=== PATIENT | male | born 1960 | race Caucasian/White ===

== ENCOUNTER → 2017-10-28 | Outpatient (CLI) | payer BC ==
[2014-04-18 17:48] VITALS: BP 102/66
--- NOTE | 2017-10-28 15:46 | VAS ---
HISTORY: Right lower extremity pain Study: Right lower extremity venous vascular examination: Multiplanar multi sequence magnetic reson ance ring of the deep venous system of the right lower extremity was performed using color, grayscale and pulsed Doppler imaging. Compression and augmentation techniques utilized. Comparison: None Findings: The common femoral vein, superficial femoral vein and popliteal vein are widely patent. No intralumi nal filling defects are identified. These vessels show normal phasic flow. Augmentation and luzmaria adis techniques are normal. IMPRESSION: 1. No evidence of deep venous thrombosis involving the right lower extremity. Reported By:
== END ==
LOC: RAD 14:18
PROVIDERS: ATTEND Internal Medicine
DX: M79.604 Pain in right leg (principal)
CPT/HCPCS: 93971

== ENCOUNTER 2018-01-19 23:33 | Emergency (ER) | payer BC ==
[2018-01-19 23:42] VITALS: BP 124/68; BMI 30.3
[2018-01-19] MEDS ORDERED: SALINE 3% 15 ML NEB TX ONE (23:52)
[2018-01-19] MEDS ORDERED: SALINE 3% 15 ML NEB TX NEB ONE (23:54)
--- NOTE | 2018-01-20 00:28 | DR.GENAD ---
HPI - PCP Primary Care Physician: toni - Complaint/Symptoms Chief Complaint:: coughing short of breath for three works but worse over the last week. - Nurses notes reviewed Nurses Notes Review: Yes - Source History Provided: Patient - Mode of Arrival Mode of Arrival: Ambulatory - Timing Onset of Chief Complaint: 01/12/18 PMH - PMH Past Medical History: No Past Medical History: GERD, Hypertension Past Surgical History: Yes Surgical History: Abdominal Surgery, Cholecystectomy Past Surgical History Comment: bowel resection as a child - Family History History of Family Medical Conditions: Yes Family Medical History: Cancer - Social History Does patient currently use any type of tobacco product: No Have you used tobacco products in the last 12 months: No Type of Tobacco Use: None Does any household member use tobacco: No Alcohol Use: None Do you use any recreational Drugs:: No Lives With: Family Lives Where: Home - infectious screening In the last 2 months have you had wt loss of >10#?: NO Have you had fever, night sweats or hemotysis?: No Have you traveled outside the country in the last 6 months?: No Isolation: Standard PE - Vital Signs Vitals: Temperature 98.9 F Pulse Rate 106 Respiratory Rate 28 Blood Pressure [Left Arm] 141/97 Blood Pressure [Right Arm] 102/66 Blood Pressure 124/68 O2 Sat by Pulse Oximetry 98 ROR - Labs Reviewed Result Diagrams: 01/20/18 02:14 01/20/18 02:14 Laboratory: 01/20/18 00:07 Sputum - Expectorated Sputum - Final WBC 10.7 X10^3/uL (3.6-10.0) H 01/20/18 02:14 RBC 4.81 X10^6/uL (4.7-6.0) 01/20/18 02:14 Hgb 14.1 g/dL (13.5-18.0) 01/20/18 02:14 Hct 41.2 % (42.0-54.0) L 01/20/18 02:14 MCV 85.6 fL (80.0-100.0) 01/20/18 02:14 MCH 29.4 pg (27.0-34.0) 01/20/18 02:14 MCHC 34.3 g/dL (33.0-35.0) 01/20/18 02:14 RDW 13.2 % (11.6-16.5) 01/20/18 02:14 Plt Count 355 X10^3/uL (150.0-450.0) 01/20/18 02:14 MPV 8.2 fL (7.4-11.0) 01/20/18 02:14 Neut % (Auto) 83.2 % (42.0-75.0) H 01/20/18 02:14 Lymph % (Auto) 11.9 % (21.0-51.0) L 01/20/18 02:14 [place] % (Auto) 4.3 % (0.0-13.0) 01/20/18 02:14 Eos % (Auto) 0.1 % (0.9-2.9) L 01/20/18 02:14 Baso % (Auto) 0.5 % (0.2-1.0) 01/20/18 02:14 Neut # (Auto) 9.0 x10^3/uL (2.2-4.8) H 01/20/18 02:14 Lymph # (Auto) 1.3 X10^3/uL (1.3-2.9) 01/20/18 02:14 [place] # (Auto) 0.5 x10^3/uL (0.3-0.8) 01/20/18 02:14 Eos # (Auto) 0.0 x10^3/uL (0.0-0.2) 01/20/18 02:14 Baso # (Auto) 0.1 X10^3/uL (0.0-0.1) 01/20/18 02:14 Absolute Nucleated RBC 0.0 /100WBC 01/20/18 02:14 Sodium 137 mmol/L (136-145) 01/20/18 02:14 Corrected Sodium 138 mmol/L (136-145) 01/20/18 02:14 Potassium 4.7 mmol/L (3.5-5.1) 01/20/18 02:14 Chloride 100 mmol/L (98-107) 01/20/18 02:14 Carbon Dioxide 24.8 mmol/L (21-32) 01/20/18 02:14 BUN 27 mg/dL (7-18) H 01/20/18 02:14 Creatinine 1.55 mg/dL (0.70-1.30) H 01/20/18 02:14 Est GFR (MDRD) Af Amer 59 (>60) 01/20/18 02:14 Est GFR (MDRD) Non-Af 49 (>60) L 01/20/18 02:14 Glucose 130 mg/dL (65-99) H 01/20/18 02:14 Calcium 8.9 mg/dL (8.5-10.1) 01/20/18 02:14 Corrected Calcium TNP 01/20/18 02:14 Total Bilirubin 0.40 mg/dL (0.2-1.0) 01/20/18 02:14 AST 27 Units/L (15-37) 01/20/18 02:14 ALT 26 Units/L (12-78) 01/20/18 02:14 Alkaline Phosphatase 101 Units/L (46-116) 01/20/18 02:14 Total Protein 8.9 g/dL (6.4-8.2) H 01/20/18 02:14 Albumin 3.9 g/dL (3.4-5.0) 01/20/18 02:14 Globulin 5.0 g/dL (2.5-4.5) H 01/20/18 02:14 Albumin/Globulin Ratio 0.8 Ratio (1.1-2.1) L 01/20/18 02:14 - Discharge Plan Condition: Stable Prescriptions: Cefdinir [Omnicef Cap 300 mg] 300 mg PO BID #20 cap Methylprednisolone Dosepak 4Mg [MEDROL DOSEPAK (4 mg tab x 21)] 1 ronald PO ONCE # 1 ronald - Follow ups/Referrals Follow ups/Referrals: Ramana Baird [Primary Care Provider] - 2 days - Instructions Instructions: Acute Bronchitis, Adult, [id number], Chronic Obstructive Pulmonary Disease Exacerbation, [id number] Additional Instructions: RETURN TO ED IF WORSE. YOU ALSO HAVE RESOLVING PNEUMONIA.
[2018-01-20] MEDS ORDERED: NS 1000 ML 1,000 ML ONE (00:45)
[2018-01-20] MEDS ORDERED: SOLU-Medrol 125 MG VIAL IVP ONE (00:56)
[2018-01-20] MEDS ORDERED: SOLU-Medrol 125 MG VIAL ONE (00:57)
[2018-01-20] MEDS ORDERED: NS 1000 ML 1,000 ML IV SCH (01:00)
[2018-01-20] MEDS ORDERED: ROCEPHIN 1 GM IV PREMIX 1 GM/50 ML IV.SOLN. IV ONE (01:52)
[2018-01-20 02:21] LABS: BASOPHILS # (AUTO) 0.1 X10^3/uL (0.0-0.1); BASOPHILS % (AUTO) 0.5 % (0.2-1.0); EOSINOPHILS % (AUTO) 0.1 % (0.9-2.9); HEMATOCRIT 41.2 % (42.0-54.0); HEMOGLOBIN 14.1 g/dL (13.5-18.0); LYMPHOCYTES # (AUTO) 1.3 X10^3/uL (1.3-2.9); LYMPHOCYTES % (AUTO) 11.9 % (21.0-51.0); MEAN CORPUSCULAR HEMOGLOBIN 29.4 pg (27.0-34.0); MEAN CORPUSCULAR HGB CONC 34.3 g/dL (33.0-35.0); MEAN CORPUSCULAR VOLUME 85.6 fL (80.0-100.0); MEAN PLATELET VOLUME 8.2 fL (7.4-11.0); MONOCYTES # (AUTO) 0.5 x10^3/uL (0.3-0.8); MONOCYTES % (AUTO) 4.3 % (0.0-13.0); NEUTROPHILS % (AUTO) 83.2 % (42.0-75.0); PLATELET COUNT 355 X10^3/uL (150.0-450.0); RED BLOOD COUNT 4.81 X10^6/uL (4.7-6.0); RED CELL DISTRIBUTION WIDTH 13.2 % (11.6-16.5); WHITE BLOOD COUNT 10.7 X10^3/uL (3.6-10.0)
[2018-01-20] MEDS ORDERED: ROCEPHIN VIAL 1 GM ONE (02:21)
[2018-01-20] MEDS ORDERED: NS 100 ML IV 100 ML IV ONE (02:22)
[2018-01-20 02:31] LABS: ALANINE AMINOTRANSFERASE 26 Units/L (12-78); ALBUMIN 3.9 g/dL (3.4-5.0); ALKALINE PHOSPHATASE 101 Units/L (46-116); ASPARTATE AMINO TRANSFERASE 27 Units/L (15-37); BLOOD UREA NITROGEN 27 mg/dL (7-18); CALCIUM 8.9 mg/dL (8.5-10.1); CARBON DIOXIDE 24.8 mmol/L (21-32); CHLORIDE 100 mmol/L (98-107); COR NA(FOR HYPERGLY) 138 mmol/L (136-145); CREATININE 1.55 mg/dL (0.70-1.30); SODIUM 137 mmol/L (136-145); TOTAL PROTEIN 8.9 g/dL (6.4-8.2); eGFR BLACK RACES 59 (>60); eGFR NON BLACK RACES 49 (>60)
--- NOTE | 2018-01-20 02:43 | RAD ---
Chest, two views Indication: Cough Comparison: 09/26/2013 Findings: Heart size is normal. Lungs are mildly hyperinflated with coarsened interstitial markings a nd mild biapical pleural scarring, suggestive for COPD. There is also peribronchial thickening. No fo naz consolidation, significant effusion or pneumothorax is identified. There is no acute osseous abno rmality. Impression: COPD with peribronchial thickening, either representing acute, chronic or acute on chronic bronchitis . Reported By:
== END 2018-01-20 03:29 | disposition home or self-care (01) ==
LOC: ER 23:33
DX: J20.9 Acute bronchitis, unspecified (principal); J44.1 Chronic obstructive pulmonary disease with (acute) exacerbation
CPT/HCPCS: 36415; 71046; 80053; 85025; 87070; 87205; 96365; 96367; 96374; 96375; 99283; A4222; J0696; J2930

== ENCOUNTER 2018-01-26 11:56 | Observation (INO) | payer BC ==
[2018-01-26 14:34] LABS: BASOPHILS % (AUTO) 0.3 % (0.2-1.0); EOSINOPHILS # (AUTO) 0.7 x10^3/uL (0.0-0.2); EOSINOPHILS % (AUTO) 4.2 % (0.9-2.9); HEMATOCRIT 43.7 % (42.0-54.0); HEMOGLOBIN 14.8 g/dL (13.5-18.0); LYMPHOCYTES # (AUTO) 4.2 X10^3/uL (1.3-2.9); LYMPHOCYTES % (AUTO) 26.4 % (21.0-51.0); MEAN CORPUSCULAR HEMOGLOBIN 29.4 pg (27.0-34.0); MEAN CORPUSCULAR HGB CONC 33.9 g/dL (33.0-35.0); MEAN CORPUSCULAR VOLUME 86.5 fL (80.0-100.0); MEAN PLATELET VOLUME 7.9 fL (7.4-11.0); MONOCYTES # (AUTO) 1.4 x10^3/uL (0.3-0.8); MONOCYTES % (AUTO) 8.6 % (0.0-13.0); NEUTROPHILS # (AUTO) 9.7 x10^3/uL (2.2-4.8); NEUTROPHILS % (AUTO) 60.5 % (42.0-75.0); PLATELET COUNT 398 X10^3/uL (150.0-450.0); RED BLOOD COUNT 5.05 X10^6/uL (4.7-6.0); RED CELL DISTRIBUTION WIDTH 12.8 % (11.6-16.5)
[2018-01-26] MEDS: NS 1000 ML 1,000 ML IV SCH (14:43)
[2018-01-26 14:51] LABS: ALANINE AMINOTRANSFERASE 30 Units/L (12-78); ALBUMIN 3.3 g/dL (3.4-5.0); ALKALINE PHOSPHATASE 98 Units/L (46-116); ASPARTATE AMINO TRANSFERASE 18 Units/L (15-37); BLOOD UREA NITROGEN 24 mg/dL (7-18); CALCIUM 8.4 mg/dL (8.5-10.1); CARBON DIOXIDE 30.2 mmol/L (21-32); CHLORIDE 98 mmol/L (98-107); CKMB % 2.4 % (<4); CREATINE KINASE 89 Units/L (39-308); CREATINE KINASE MB 2.1 ng/mL (0-4.0); CREATININE 1.44 mg/dL (0.70-1.30); SODIUM 134 mmol/L (136-145); TOTAL PROTEIN 7.9 g/dL (6.4-8.2); TROPONIN I < 0.02 ng/mL (0-1.5); eGFR BLACK RACES > 60 (>60); eGFR NON BLACK RACES 53 (>60)
[2018-01-26] MEDS ORDERED: ULTRAM PO PRN (15:28)
[2018-01-26] MEDS ORDERED: AMBIEN PO PRN (15:28)
[2018-01-26] MEDS ORDERED: NORCO 5/325 MG TAB PO PRN (15:28)
[2018-01-26] MEDS ORDERED: MORPHINE SULFATE INJ 2 MG INJ IVP PRN (15:28)
[2018-01-26] MEDS ORDERED: TYLENOL 325 MG TAB PO PRN (15:28)
[2018-01-26 15:37] LABS: BILIRUBIN,URINE NEGATIVE (NEGATIVE); BLOOD/HEMOGLOBIN,URINE NEGATIVE (NEGATIVE); GLUCOSE, URINE NEGATIVE (NEGATIVE); KETONES,URINE NEGATIVE (NEGATIVE); LEUKOCYTE ESTERASE ,URINE NEGATIVE (NEGATIVE); NITRITES,URINE NEGATIVE (NEGATIVE); PROTEIN,URINE NEGATIVE (NEGATIVE); UROBILINOGEN,URINE NORMAL (NORMAL)
--- NOTE | 2018-01-26 15:38 | CT ---
HISTORY: Syncope. Study: CT brain without contrast Comparison: None. Technique: Multiple axial images of the brain were obtained from the skull base to the vertex without administra tion of IV contrast. Dose reduction techniques including Automated Exposure Control (AEC) and adjust ment of mA and kV were utilized. Findings: Age-related cortical atrophy and chronic small vessel ischemic changes. No acute intraparenchymal hem orrhage or mass can be identified. No extra-axial fluid collections are seen. No alteration in the attenuation of the brain parenchyma can be identified to suggest acute or subacute ischemic change. The ventricular system is symmetric and nondilated. The extracranial structures are grossly unremark able. IMPRESSION: No obvious acute intracranial pathology. If clinically concerned for acute ischemia/infar ction, MRI brain is more sensitive. Reported By:
--- NOTE | 2018-01-26 15:46 | RAD ---
HISTORY: Syncope and hypotension Study: Single view of the chest. Comparison: 01/20/2018 Findings: The cardiomediastinal silhouette is normal. No focal consolidations, pleural effusions or pneumothora x. Osseous structures demonstrate no acute abnormality. IMPRESSION: 1. No acute cardiopulmonary process. Reported By:
[2018-01-26 16:03] LABS: APPEARANCE,URINE CLEAR (CLEAR); COLOR,URINE YELLOW (YELLOW)
[2018-01-26 16:47] VITALS: BMI 28.0
[2018-01-26 18:30] LABS: CKMB % 2.1 % (<4); CREATINE KINASE 89 Units/L (39-308); CREATINE KINASE MB 1.9 ng/mL (0-4.0); TROPONIN I < 0.02 ng/mL (0-1.5)
[2018-01-26] MEDS ORDERED: MAALOX or MYLANTA PO PRN (21:04)
[2018-01-26 23:02] LABS: CKMB % 1.9 % (<4); CREATINE KINASE 73 Units/L (39-308); CREATINE KINASE MB 1.4 ng/mL (0-4.0); TROPONIN I < 0.02 ng/mL (0-1.5)
[2018-01-27] MEDS: NS 1000 ML 1,000 ML IV SCH ×2 (03:22→16:29)
[2018-01-27 06:21] LABS: BASOPHILS # (AUTO) 0.1 X10^3/uL (0.0-0.1); BASOPHILS % (AUTO) 0.7 % (0.2-1.0); EOSINOPHILS # (AUTO) 0.8 x10^3/uL (0.0-0.2); EOSINOPHILS % (AUTO) 5.2 % (0.9-2.9); HEMATOCRIT 41.1 % (42.0-54.0); HEMOGLOBIN 14.2 g/dL (13.5-18.0); LYMPHOCYTES # (AUTO) 5.5 X10^3/uL (1.3-2.9); MEAN CORPUSCULAR HEMOGLOBIN 29.4 pg (27.0-34.0); MEAN CORPUSCULAR HGB CONC 34.7 g/dL (33.0-35.0); MEAN CORPUSCULAR VOLUME 84.8 fL (80.0-100.0); MONOCYTES # (AUTO) 1.4 x10^3/uL (0.3-0.8); MONOCYTES % (AUTO) 8.6 % (0.0-13.0); NEUTROPHILS # (AUTO) 8.3 x10^3/uL (2.2-4.8); NEUTROPHILS % (AUTO) 51.5 % (42.0-75.0); PLATELET COUNT 362 X10^3/uL (150.0-450.0); RED BLOOD COUNT 4.84 X10^6/uL (4.7-6.0); RED CELL DISTRIBUTION WIDTH 13.2 % (11.6-16.5); WHITE BLOOD COUNT 16.1 X10^3/uL (3.6-10.0)
[2018-01-27 06:52] LABS: ALANINE AMINOTRANSFERASE 27 Units/L (12-78); ALBUMIN 2.9 g/dL (3.4-5.0); ALKALINE PHOSPHATASE 91 Units/L (46-116); ASPARTATE AMINO TRANSFERASE 18 Units/L (15-37); BLOOD UREA NITROGEN 17 mg/dL (7-18); CALCIUM 8.4 mg/dL (8.5-10.1); CARBON DIOXIDE 29.4 mmol/L (21-32); CHLORIDE 103 mmol/L (98-107); COR CA(FOR HYPOALB) 9.3 mg/dL (8.5-10.1); CREATININE 1.25 mg/dL (0.70-1.30); SODIUM 138 mmol/L (136-145); TOTAL PROTEIN 7.1 g/dL (6.4-8.2); eGFR BLACK RACES > 60 (>60); eGFR NON BLACK RACES > 60 (>60)
[2018-01-27] MEDS: FORTAZ or TAZICEF INJ 1 GM in NS 100 ML IV + SPIKE MINIBAG* 100 ML IV SCH ×3 (09:49→21:39)
[2018-01-27] MEDS: LEVAQUIN PREMIX IV 750 MG 750 MG/150 ML BAG IV SCH (09:49)
[2018-01-27] MEDS ORDERED: ROBITUSSIN DM PO PRN (11:39)
--- NOTE | 2018-01-27 11:57 | DR.UPDATE ---
H&P Update History and Physical Update: WAS SEEN IN THE OFFICE ON 01/26/2018. A H&P WAS COMPLETED PRIOR TO ADMISSION. PATIENT HAS BEEN SEEN AND EXAMINED WITH NO CHANGES NOTED TO H&P. Changes noted: NO Yes with the following:
[2018-01-27] MEDS ORDERED: TESSALON PERLES PO PRN (12:48)
[2018-01-27] MEDS ORDERED: ACETAMINOPHEN T PO PRN (12:48)
[2018-01-27] MEDS ORDERED: TRAMADOL HCL PO PRN (12:48)
[2018-01-27] MEDS ORDERED: [UNRECOGNIZED DRUG - OTHER] PO PRN (12:48)
[2018-01-27] MEDS ORDERED: Atrovent NEB TX 0.02% NEB SCH (13:00)
[2018-01-27] MEDS ORDERED: PROVENTIL NEB TX 0.083% 2.5MG/ 3ML NEB SCH (13:00)
[2018-01-27] MEDS: DUONEB 0.5 MG/3 MG NEB SCH ×3 (13:18→21:44)
[2018-01-27] MEDS: LASIX PO SCH (13:49)
[2018-01-27] MEDS: K-DUR TAB 20 MEQ PO SCH (13:49)
[2018-01-27] MEDS: SINGULAIR TAB 10 MG PO SCH (13:49)
[2018-01-27] MEDS: PROTONIX TAB 40 MG PO SCH (13:49)
[2018-01-28 05:14] LABS: BASOPHILS % (AUTO) 0.3 % (0.2-1.0); EOSINOPHILS # (AUTO) 0.5 x10^3/uL (0.0-0.2); EOSINOPHILS % (AUTO) 3.3 % (0.9-2.9); HEMATOCRIT 37.2 % (42.0-54.0); HEMOGLOBIN 12.7 g/dL (13.5-18.0); LYMPHOCYTES # (AUTO) 5.5 X10^3/uL (1.3-2.9); LYMPHOCYTES % (AUTO) 32.8 % (21.0-51.0); MEAN CORPUSCULAR HEMOGLOBIN 29.4 pg (27.0-34.0); MEAN CORPUSCULAR HGB CONC 34.1 g/dL (33.0-35.0); MEAN CORPUSCULAR VOLUME 86.1 fL (80.0-100.0); MEAN PLATELET VOLUME 8.1 fL (7.4-11.0); MONOCYTES # (AUTO) 1.6 x10^3/uL (0.3-0.8); MONOCYTES % (AUTO) 9.4 % (0.0-13.0); NEUTROPHILS % (AUTO) 54.2 % (42.0-75.0); PLATELET COUNT 302 X10^3/uL (150.0-450.0); RED BLOOD COUNT 4.33 X10^6/uL (4.7-6.0); RED CELL DISTRIBUTION WIDTH 13.1 % (11.6-16.5); WHITE BLOOD COUNT 16.6 X10^3/uL (3.6-10.0)
[2018-01-28 05:35] LABS: ALANINE AMINOTRANSFERASE 25 Units/L (12-78); ALBUMIN 2.9 g/dL (3.4-5.0); ALKALINE PHOSPHATASE 84 Units/L (46-116); ASPARTATE AMINO TRANSFERASE 16 Units/L (15-37); BLOOD UREA NITROGEN 14 mg/dL (7-18); CARBON DIOXIDE 26.9 mmol/L (21-32); CHLORIDE 102 mmol/L (98-107); COR CA(FOR HYPOALB) 8.9 mg/dL (8.5-10.1); CREATININE 1.27 mg/dL (0.70-1.30); SODIUM 139 mmol/L (136-145); TOTAL PROTEIN 6.6 g/dL (6.4-8.2); eGFR BLACK RACES > 60 (>60); eGFR NON BLACK RACES > 60 (>60)
[2018-01-28] MEDS: NS 1000 ML 1,000 ML IV SCH ×2 (06:21→07:34)
[2018-01-28] MEDS: FORTAZ or TAZICEF INJ 1 GM in NS 100 ML IV + SPIKE MINIBAG* 100 ML IV SCH (06:22)
[2018-01-28] MEDS ORDERED: POTASSIUM CHL 60 MEQ/NS 0.45% 500 ML IV PRN (06:31)
[2018-01-28] MEDS ORDERED: K-LYTE EFFERVESCENT PO PRN (06:31)
[2018-01-28] MEDS ORDERED: K-RIDER 10 MEQ/NS 100 ML 10 MEQ/100 ML BAG IV PRN (06:31)
[2018-01-28] MEDS ORDERED: POTASSIUM CHLORIDE LIQ 20 MEQ UDC PO PRN (06:31)
[2018-01-28] MEDS ORDERED: MAGNESIUM SULFATE 1 GM/100 mL PREMIX 1 GM/100 ML BAG IV PRN (06:31)
[2018-01-28] MEDS ORDERED: POTASSIUM CHL 40 MEQ/NS 0.45% 500 ML IV PRN (06:31)
--- NOTE | 2018-01-28 07:28 | RAD ---
HISTORY: Syncope, hypertension Study: Chest AP portable Comparison: 01/26/2018 Findings: The heart is within normal limits in size. The amy are normal. The lungs are well inflated and free of acute infiltrates. No pleural effusions are identified. The bony thorax is unremarkable with the e xception of an old healed rib fracture on the left. IMPRESSION: Lungs clear Reported By:
[2018-01-28] MEDS: LASIX PO SCH ×2 (08:49)
[2018-01-28] MEDS: K-DUR TAB 20 MEQ PO SCH (08:49)
[2018-01-28] MEDS: LEVAQUIN PREMIX IV 750 MG 750 MG/150 ML BAG IV SCH (08:50)
[2018-01-28] MEDS: PROTONIX TAB 40 MG PO SCH (08:51)
[2018-01-28] MEDS: SINGULAIR TAB 10 MG PO SCH (08:51)
[2018-01-28] MEDS: DUONEB 0.5 MG/3 MG NEB SCH ×2 (08:57→12:33)
[2018-01-28 14:25] VITALS: BP 126/59
--- NOTE | 2018-01-28 15:59 | PCM.PROG ---
Progress Note - Progress Note for Day of Date: 01/27/18 - Subjective Subjective: WAS ADMITTED FOR SYNCOPE AND HYPOTENSION REFRACTORY TO OUTPATIENT TREATMENT. TODAY, HE IS ALERT AND ORIENTED, SITTING UP IN BED ON MORNING ROUNDS. HE IS NOTED WITH COMPLAINTS OF GENERALIZED WEAKNESS, MILD SHORTNESS OF BREATH, AND A NON-PRODUCTIVE COUGH. ON EXAMINATION, HEART IS REGULAR IN RATE AND RHYTHM. BILATERAL LUNGS ARE NOTED WITH DIMINISHED LUNG SOUNDS THROUGHOUT. ABDOMEN IS ROUND, SOFT, AND NON-TENDER WITH NORMAL BOWEL SOUNDS NOTED IN ALL QUADRANTS. HIS VITALS THIS MORNING ARE 97.6-77-20-92%-116/ 85. LABS WERE OBTAINED. ABNORMAL LAB VALUES INCLUDE THE FOLLOWING: WBC 16.1, HCT 41.1, CALCIUM 8.4, ALBUMIN 2.9. CARDIAC ENZYMES HAVE BEEN WITHIN NORMAL LIMITS. MOST RECENT EKG REVEALS SINUS RHYTHM WITH HR 78. BRAIN CT THAT WAS OBTAINED ON ADMISSION WAS NEGATIVE FOR ACUTE INTRACRANIAL ABNORMALITY. PATIENT REPORTS THAT HE HAS BEEN TREATED FOR PNEUMONIA IN THE LAST TWO WEEKS. THIS COULD BE WHY HIS WBC IS INCREASED. TODAY, WE WILL START FORTAZ, LEVAQUIN, AND RESPIRATORY TREATMENTS. AN ECHOCARDIOGRAM WILL BE OBTAINED TODAY WELL. OTHERWISE, WE WILL CONTINUE TO MONITOR PATIENT ON TELEMETRY. WE PLAN TO FOLLOW UP WITH AM LABS AND CONTINUE TO MONITOR PATIENT. - Past Medical Family Social History Past Med/Fam/Surg Hx: No changes since H&P Allergies: Allergies No Known Drug Allergies Allergy (Verified 01/19/18 23:53) - Review of Systems ROS: No change since H&P - Vital Signs and I&O's Vital Signs: Temperature 98 F Pulse Rate [Right Brachial] 92 Pulse Rate [Left Brachial] 133 Pulse Rate 80 Respiratory Rate 20 Blood Pressure [Left Arm] 126/59 Blood Pressure [Right Arm] 111/65 Blood Pressure 124/68 O2 Sat by Pulse Oximetry 96 Intake and Output: Intake & Output 01/26/18 01/27/18 01/28/18 01/29/18 11:59 11:59 11:59 11:59 Intake Total 1600 2860 Balance 1600 2860 - Physical Exam Oriented: Normal Eyes: Normal Ear: Normal Nose: Normal Throat: Normal Respiratory: Generalized, Diminished Cardiovascular: Normal. negative: S3, S4, Murmur : Normal Auscultation: Bowel Sounds: Normal Palpation: Normal Tenderness: Normal Skin: Normal Musculoskeletal: Normal Psychiatric: Normal Mood Description: Calm Affect: Normal Speech Pattern: Clear, Appropriate - Laboratory and Diagnostics Result Diagrams: 01/28/18 04:15 01/28/18 04:15 Labs: Laboratory WBC 16.6 X10^3/uL (3.6-10.0) H 01/28/18 04:15 RBC 4.33 X10^6/uL (4.7-6.0) L 01/28/18 04:15 Hgb 12.7 g/dL (13.5-18.0) L 01/28/18 04:15 Hct 37.2 % (42.0-54.0) L 01/28/18 04:15 MCV 86.1 fL (80.0-100.0) 01/28/18 04:15 MCH 29.4 pg (27.0-34.0) 01/28/18 04:15 MCHC 34.1 g/dL (33.0-35.0) 01/28/18 04:15 RDW 13.1 % (11.6-16.5) 01/28/18 04:15 Plt Count 302 X10^3/uL (150.0-450.0) 01/28/18 04:15 MPV 8.1 fL (7.4-11.0) 01/28/18 04:15 Neut % (Auto) 54.2 % (42.0-75.0) 01/28/18 04:15 Lymph % (Auto) 32.8 % (21.0-51.0) 01/28/18 04:15 [place] % (Auto) 9.4 % (0.0-13.0) 01/28/18 04:15 Eos % (Auto) 3.3 % (0.9-2.9) H 01/28/18 04:15 Baso % (Auto) 0.3 % (0.2-1.0) 01/28/18 04:15 Neut # (Auto) 9.0 x10^3/uL (2.2-4.8) H 01/28/18 04:15 Lymph # (Auto) 5.5 X10^3/uL (1.3-2.9) H 01/28/18 04:15 [place] # (Auto) 1.6 x10^3/uL (0.3-0.8) H 01/28/18 04:15 Eos # (Auto) 0.5 x10^3/uL (0.0-0.2) H 01/28/18 04:15 Baso # (Auto) 0.0 X10^3/uL (0.0-0.1) 01/28/18 04:15 Absolute Nucleated RBC 0.1 /100WBC 01/28/18 04:15 Sodium 139 mmol/L (136-145) 01/28/18 04:15 Corrected Sodium TNP 01/28/18 04:15 Potassium 3.0 mmol/L (3.5-5.1) L* 01/28/18 04:15 Chloride 102 mmol/L (98-107) 01/28/18 04:15 Carbon Dioxide 26.9 mmol/L (21-32) 01/28/18 04:15 BUN 14 mg/dL (7-18) 01/28/18 04:15 Creatinine 1.27 mg/dL (0.70-1.30) 01/28/18 04:15 Est GFR (MDRD) Af Amer > 60 (>60) 01/28/18 04:15 Est GFR (MDRD) Non-Af > 60 (>60) 01/28/18 04:15 Glucose 98 mg/dL (65-99) 01/28/18 04:15 Calcium 8.0 mg/dL (8.5-10.1) L 01/28/18 04:15 Corrected Calcium 8.9 mg/dL (8.5-10.1) 01/28/18 04:15 Magnesium 1.8 mg/dL (1.7-2.9) 01/28/18 04:15 Total Bilirubin 0.40 mg/dL (0.2-1.0) 01/28/18 04:15 AST 16 Units/L (15-37) 01/28/18 04:15 ALT 25 Units/L (12-78) 01/28/18 04:15 Alkaline Phosphatase 84 Units/L (46-116) 01/28/18 04:15 Creatine Kinase 73 Units/L (39-308) 01/26/18 22:25 CK-MB (CK-2) 1.4 ng/mL (0-4.0) 01/26/18 22:25 CK/CKMB % Calc 1.9 % (<4) 01/26/18 22:25 Troponin I < 0.02 ng/mL (0-1.5) 01/26/18 22:25 Total Protein 6.6 g/dL (6.4-8.2) 01/28/18 04:15 Albumin 2.9 g/dL (3.4-5.0) L 01/28/18 04:15 Globulin 3.7 g/dL (2.5-4.5) 01/28/18 04:15 Albumin/Globulin Ratio 0.8 Ratio (1.1-2.1) L 01/28/18 04:15 Specimen Type Clean catch urine 01/26/18 15:29 Urine Color Yellow (YELLOW) 01/26/18 15:29 Urine Appearance Clear (CLEAR) 01/26/18 15:29 Urine pH 5.0 (5.0 - 8.0) 01/26/18 15:29 Ur Specific [place] 1.020 (1.000-1.030) 01/26/18 15:29 Urine Protein Negative (NEGATIVE) 01/26/18 15:29 Urine Glucose (UA) Negative (NEGATIVE) 01/26/18 15:29 Urine Ketones Negative (NEGATIVE) 01/26/18 15:29 Urine Occult Blood Negative (NEGATIVE) 01/26/18 15:29 Urine Nitrite Negative (NEGATIVE) 01/26/18 15:29 Urine Bilirubin Negative (NEGATIVE) 01/26/18 15:29 Urine Urobilinogen Normal (NORMAL) 01/26/18 15:29 Ur Leukocyte Esterase Negative (NEGATIVE) 01/26/18 15:29 - Plan (1) Pneumonia Status: Acute Plan: FORTAZ, LEVAQUIN, SUPPLEMENTAL OXYGEN, RESPIRATORY TX, CONTINUE TO MONITOR (2) Hypotension Status: Acute Qualifiers: Hypotension type: unspecified hypotension type Qualified Code(s): I95.9 - Hypotension, unspecified Plan: NORMAL SALINE AT 80ML/HR, CONTINUE TO MONITOR (3) Syncopal episodes Status: Acute Qualifiers: Syncope type: unspecified Qualified Code(s): R55 - Syncope and collapse Plan: TREAT BP, CONTINUE TO MONITOR
== END 2018-01-28 12:50 | disposition home or self-care (01) ==
LOC: UNDOADMOB 11:56 → MED/SURG 11:56
PROVIDERS: ADMIT Internal Medicine; ATTEND Internal Medicine
DX: I95.89 Other hypotension (principal); R55 Syncope and collapse; R42 Dizziness and giddiness; I10 Essential (primary) hypertension; R94.31 Abnormal electrocardiogram [ECG] [EKG]; R53.1 Weakness; R06.02 Shortness of breath; R94.4 Abnormal results of kidney function studies
CPT/HCPCS: 36415; 70450; 71045; 80053; 81003; 82550; 82553; 83735; 84484; 85025; 87040; 93005; 93306; 94640; 94760; A4216; A4222; G0378; J0713; J1956; J7620

== ENCOUNTER 2019-09-22 09:24 | Observation (INO) ==
[2019-09-22 09:28] VITALS: BMI 27.6
--- NOTE | 2019-09-22 09:42 | DR.GENAD ---
HPI Time Seen Time Seen by Provider: 09/22/19 09:35 PCP Primary Care Physician: GILMA HPI Comment HPI Comment: PATIENT IS 59YR OLD MALE WHO FELL ON CONCRETE FLOOR THIS AM/05:00AM AFTER HE HAD SYNCOPAL EPISODE. LEFT SIDED WEAKNESS AFTER EPISODE THAT IS IMPROVING BUT NOT RESOLVED. ALSO HEADACHE, NECK PAIN AND LEFT SHOULDER PAIN. Complaint/Symptoms Chief Complaint Doctors Comments: SYNCOPAL EPISODE, FELL, HIT CONCRETE FLOOR AND LEFT SIDE OF HEAD. HEADACHE, NECK PAIN AND LEFT SHOULDER PAIN. Chief Complaint:: PT. STATES HE HAD A SYNCOPAL EPISODE THIS MORNING AND HE FELL, HITTING THE CONCRETE FLOOR. ABRASION NOTED TO LEFT SIDE OF FOREHEAD AND NOSE. PT. C/O HEADACHE, NECK PAIN AND LEFT SHOULDER PAIN. PT. STATES AFTER HE PASSED OUT, HE WAS UNABLE TO MOVE HIS LEFT SIDE FOR ABOUT 10-15 MINUTES. HE SAYS HIS LEFT ARM AND LEFT LEG STILL FEELS SLUGGISH. INCIDENT OCCURED ABOUT 0500. PT. DRAGGING LEFT LEG. LEFT ARM NOTED TO BE WEAK. Nurses notes reviewed Nurses Notes Review: Yes Source History Provided: Patient Mode of Arrival Mode of Arrival: Ambulatory Timing Onset of Chief Complaint: 09/22/19 PMH PMH Past Medical History: Yes Past Medical History: GERD and Hypertension Past Surgical History: Yes Surgical History: Cholecystectomy Family History History of Family Medical Conditions: Yes Family Medical History: Cancer Social History Does patient currently use any type of tobacco product: No Have you used tobacco products in the last 12 months: No Type of Tobacco Use: None Does any household member use tobacco: No Alcohol Use: None Do you use any recreational Drugs:: No Lives With: Spouse Lives Where: Home infectious screening In the last 2 months have you had wt loss of >10#?: NO Have you had fever, night sweats or hemotysis?: No Have you traveled outside the country in the last 6 months?: No Isolation: Standard ROS Review of Systems Constitutional: No Symptoms Reported, See HPI, Weakness and Fatigue; negative Fever Eyes: See HPI; negative Blurred Vision, Photophobia and Diplopia ENTM: No Symptoms Reported and See HPI; negative Ear Pain, Nose Discharge, Nose Congestion and Throat Pain Respiratoy: See HPI and Short of Breath (ON EXERTION); negative Moist Cough and Wheezing Cardiovascular: See HPI and Syncope; negative Chest Pain Gastrointestinal/Abdominal: No Symptoms Reported and See HPI; negative Abdominal Pain, Constipation, Diarrhea, Nausea and Vomiting Genitourinary: No Symptoms Reported; negative Dysuria, Frequency, Hematuria and Pain Neurological: See HPI, Headache, Weakness and Dizziness Musculoskeletal: No Symptoms Reported, See HPI, Muscle Pain and Shoulder (LEFT SHOULDER PAIN.); negative Back Pain Integumentary: See HPI, Bruises and Other (ABRASIONS FOREHEAD.); negative Change in Color, Dryness and Juandice Hematologic/Lymphatic: No Symptoms Reported and See HPI; negative Easy Bruising and Swollen Glands Endocrine: No Symptoms Reported and See HPI; negative Increased Thirst and Increased Urine Psychiatric: No Symptoms Reported and See HPI All Other Systems: Reviewed and Negative PE Vital Signs Vitals: Temperature 97.6 F Pulse Rate [Left Brachial] 74 Pulse Rate [Standing] 65 Pulse Rate [Sitting] 66 Pulse Rate [Lying] 62 Pulse Rate 87 Respiratory Rate 17 Blood Pressure [Left Arm] 116/84 Blood Pressure [Right Arm] 111/65 Blood Pressure [Standing] 128/84 Blood Pressure [Sitting] 133/87 Blood Pressure [Lying] 112/84 Blood Pressure 106/66 O2 Sat by Pulse Oximetry 95 General Limitations: No Limitations General Appearance: Alert and In No Apparent Distress Head Head Exam: Other (FOREHEAD AND BRIDGE OF NONE ABRASIONS.) Eyes Eye exam: Normal Appearance and PERRL; negative Scleral Icterus and Conjunctival Injection ENT ENT Exam: Normal Exam, Normal Oropharynx, Normal External Ear Exam and TM's Normal Bilaterally External Ear Exam: Normal External Inspection; negative Mastoid Tenderness, Pain with Movement and External Tenderness TM/Canal Exam: Bilateral: Normal Nose Exam: Abrasion (BRIDGE OF NOSE.); negative Septal Hematoma Mouth Exam: Normal Inspection; negative Lip Swelling and Tongue Swelling Throat Exam: Normal Inspection; negative Tonsillar Erythema, Tonsillomegaly and Tonsillar Exudate Neck Neck Exam: Normal Inspection and Trachea Midline; negative Tenderness and Lymphadenopathy Chest Chest Inspection: Normal Inspection and Symmetric Chest Wall Rise; negative Tenderness Respiratory Respiratory Exam: Normal Lung Sounds Bilat; negative Accessory Muscle Use, Chest Wall Tenderness and Respiratory Distress Respiratory Exam: Bilateral: Clear to Auscultation Cardiovascular Cardiovascular Exam: Regular Rate, Normal Rhythm and Normal Heart Sounds; negative Systolic Murmur and Diastolic Murmur Abdominal Exam Abdominal Exam: Normal Inspection, Normal Bowel Sounds and Soft; negative Tenderness Extremities Extremities Exam: Normal Inspection, Tenderness (LEFT SHOULDER TENDER. ROM DECREASE.) and Normal Capillary Refill; negative Edema and Calf Tenderness Back Back Exam: Normal Inspection; negative Tenderness, (R) CVA Tenderness, (L) CVA Tenderness, Paraspinal Tenderness and Vertebral Tenderness Neurologic Neurological Exam: Alert and Oriented X3; negative CN II-XII Intact and Motor Sensory Deficit Psychiatric Psychiatric Exam: Normal Affect and Normal Mood Skin Skin Exam: Erythema and Other (ABRASION NOSE AND FOREHEAD.) MDM Additional Information Additional Information Obtained From: Family Differential Diagnosis Differential Diagnosis: SYNCOPAL EPISODE. CLOSE HEAD TRAUMA, HEADACHE, LT SIDED WEAKNE, NECK PAIN. COURSE Treatment Treatment: SEE ORDERS. Consultation Consultation Comments: DR. DILLARD WILL ADMIT PATIENT. Education/Counseling Education/Counseling: Patient and Family Educated On: Diagnosis and Needs for Follow Up ROR Labs Reviewed Laboratory Results Reviewed?: Yes Result Diagrams: 09/22/19 10:08 09/22/19 10:08 Laboratory: WBC 8.2 X10^3/uL (3.6-10.0) 09/22/19 10:08 RBC 5.32 X10^6/uL (4.7-6.0) 09/22/19 10:08 Hgb 15.8 g/dL (13.5-18.0) 09/22/19 10:08 Hct 46.8 % (42.0-54.0) 09/22/19 10:08 MCV 87.9 fL (80.0-100.0) 09/22/19 10:08 MCH 29.7 pg (27.0-34.0) 09/22/19 10:08 MCHC 33.8 g/dL (33.0-35.0) 09/22/19 10:08 RDW 13.3 % (11.6-16.5) 09/22/19 10:08 Plt Count 294 X10^3/uL (150.0-450.0) 09/22/19 10:08 MPV 8.1 fL (7.4-11.0) 09/22/19 10:08 Neut % (Auto) 54.8 % (42.0-75.0) 09/22/19 10:08 Lymph % (Auto) 26.7 % (21.0-51.0) 09/22/19 10:08 [place] % (Auto) 12.1 % (0.0-13.0) 09/22/19 10:08 Eos % (Auto) 5.7 % (0.9-2.9) H 09/22/19 10:08 Baso % (Auto) 0.7 % (0.2-1.0) 09/22/19 10:08 Neut # (Auto) 4.5 x10^3/uL (2.2-4.8) 09/22/19 10:08 Lymph # (Auto) 2.2 X10^3/uL (1.3-2.9) 09/22/19 10:08 [place] # (Auto) 1.0 x10^3/uL (0.3-0.8) H 09/22/19 10:08 Eos # (Auto) 0.5 x10^3/uL (0.0-0.2) H 09/22/19 10:08 Baso # (Auto) 0.1 X10^3/uL (0.0-0.1) 09/22/19 10:08 Absolute Nucleated RBC 0.1 /100WBC 09/22/19 10:08 Sodium 136 mmol/L (136-145) 09/22/19 10:08 Corrected Sodium 136 mmol/L (136-145) 09/22/19 10:08 Potassium 3.9 mmol/L (3.5-5.1) 09/22/19 10:08 Chloride 101 mmol/L (98-107) 09/22/19 10:08 Carbon Dioxide 32.4 mmol/L (21-32) H 09/22/19 10:08 BUN 13 mg/dL (7-18) 09/22/19 10:08 Creatinine 1.24 mg/dL (0.70-1.30) 09/22/19 10:08 Est GFR (MDRD) Af Amer > 60 (>60) 09/22/19 10:08 Est GFR (MDRD) Non-Af > 60 (>60) 09/22/19 10:08 Glucose 112 mg/dL (65-99) H 09/22/19 10:08 Calcium 9.0 mg/dL (8.5-10.1) 09/22/19 10:08 Corrected Calcium TNP 09/22/19 10:08 Total Bilirubin 0.40 mg/dL (0.2-1.0) 09/22/19 10:08 AST 24 Units/L (15-37) 09/22/19 10:08 ALT 20 Units/L (12-78) 09/22/19 10:08 Alkaline Phosphatase 81 Units/L (46-116) 09/22/19 10:08 Creatine Kinase 227 Units/L (39-308) 09/22/19 10:08 CK-MB (CK-2) 3.0 ng/mL (0-4.0) 09/22/19 10:08 CK/CKMB % Calc 1.3 % (<4) 09/22/19 10:08 Troponin I < 0.02 ng/mL (0-1.5) 09/22/19 10:08 Total Protein 7.9 g/dL (6.4-8.2) 09/22/19 10:08 Albumin 3.5 g/dL (3.4-5.0) 09/22/19 10:08 Globulin 4.4 g/dL (2.5-4.5) 09/22/19 10:08 Albumin/Globulin Ratio 0.8 Ratio (1.1-2.1) L 09/22/19 10:08 Specimen Type Random urine 09/22/19 11:52 Urine Color Yellow (YELLOW) 09/22/19 11:52 Urine Appearance Clear (CLEAR) 09/22/19 11:52 Urine pH 8.0 (5.0 - 8.0) 09/22/19 11:52 Ur Specific [place] 1.005 (1.000-1.030) 09/22/19 11:52 Urine Protein Negative (NEGATIVE) 09/22/19 11:52 Urine Glucose (UA) Negative (NEGATIVE) 09/22/19 11:52 Urine Ketones Negative (NEGATIVE) 09/22/19 11:52 Urine Occult Blood Negative (NEGATIVE) 09/22/19 11:52 Urine Nitrite Negative (NEGATIVE) 09/22/19 11:52 Urine Bilirubin Negative (NEGATIVE) 09/22/19 11:52 Urine Urobilinogen Normal (NORMAL) 09/22/19 11:52 Ur Leukocyte Esterase Negative (NEGATIVE) 09/22/19 11:52 XRAY XRAY Interpreted by: Radiologist and Self (SHOULDER LT WITHOUT ACUTE FINDINGS.) XRAY Findings: REPORT NOTED AND DISCUSSED WITH PATIENT. EKG Rate: 71 [place]: Normal Rhythm: NSR Block: RBBB Hypertrophy: LAE and LVH ST: Nonsp Opioid Opioid Risk Tool Age ([place] box if 16-45): No History of Preadolescent Sexual Abuse: No Total: 0 Total Score Risk Category: Low Risk Copyright: Sheldon SHARP predicting aberrant behaviors Diagnosis Discharge Problem: Acute left-sided muscle weakness, Acute pain of left shoulder Episode of syncope Qualifiers: Syncope type: unspecified Qualified Code(s): R55 - Syncope and collapse Instructions Forms: Excuse From Work Patient Portal
[2019-09-22 10:16] LABS: BASOPHILS # (AUTO) 0.1 X10^3/uL (0.0-0.1); BASOPHILS % (AUTO) 0.7 % (0.2-1.0); EOSINOPHILS # (AUTO) 0.5 x10^3/uL (0.0-0.2); EOSINOPHILS % (AUTO) 5.7 % (0.9-2.9); HEMATOCRIT 46.8 % (42.0-54.0); HEMOGLOBIN 15.8 g/dL (13.5-18.0); LYMPHOCYTES # (AUTO) 2.2 X10^3/uL (1.3-2.9); LYMPHOCYTES % (AUTO) 26.7 % (21.0-51.0); MEAN CORPUSCULAR HEMOGLOBIN 29.7 pg (27.0-34.0); MEAN CORPUSCULAR HGB CONC 33.8 g/dL (33.0-35.0); MEAN CORPUSCULAR VOLUME 87.9 fL (80.0-100.0); MEAN PLATELET VOLUME 8.1 fL (7.4-11.0); MONOCYTES % (AUTO) 12.1 % (0.0-13.0); NEUTROPHILS # (AUTO) 4.5 x10^3/uL (2.2-4.8); NEUTROPHILS % (AUTO) 54.8 % (42.0-75.0); PLATELET COUNT 294 X10^3/uL (150.0-450.0); RED BLOOD COUNT 5.32 X10^6/uL (4.7-6.0); RED CELL DISTRIBUTION WIDTH 13.3 % (11.6-16.5); WHITE BLOOD COUNT 8.2 X10^3/uL (3.6-10.0)
--- NOTE | 2019-09-22 10:30 | RAD ---
History: Fall and chest pain and left shoulder pain newStudy: Portable AP chestComparison: May 14, 2018Findings: There is mild chronic interstitial lung disease. The heart size is prominent. There is no edema or effusion or pneumothorax. There is old fracture of the left 4th lateral rib.Impression: No evidence for acute cardiopulmonary diseaseReported By:
--- NOTE | 2019-09-22 10:31 | RAD ---
History: Left shoulder pain after fallStudy: Three views of the left shoulderComparison: NoneFindings: There are mild osteophytes about the AC joint and also about the glenohumeral joint inferiorly are moderate osteophytes. There is an old fracture of the left 4th lateral rib. No acute fracture is demonstrated.Impression: Osteoarthritis primarily about the glenohumeral joint.Reported By:
[2019-09-22 10:34] LABS: BLOOD UREA NITROGEN 13 mg/dL (7-18); CARBON DIOXIDE 32.4 mmol/L (21-32); CHLORIDE 101 mmol/L (98-107); COR NA(FOR HYPERGLY) 136 mmol/L (136-145); CREATININE 1.24 mg/dL (0.70-1.30); SODIUM 136 mmol/L (136-145); TROPONIN I < 0.02 ng/mL (0-1.5); eGFR NON BLACK RACES > 60 (>60)
[2019-09-22 10:38] LABS: ALANINE AMINOTRANSFERASE 20 Units/L (12-78); ALBUMIN 3.5 g/dL (3.4-5.0); ALKALINE PHOSPHATASE 81 Units/L (46-116); ASPARTATE AMINO TRANSFERASE 24 Units/L (15-37); CKMB % 1.3 % (<4); CREATINE KINASE 227 Units/L (39-308); TOTAL PROTEIN 7.9 g/dL (6.4-8.2)
[2019-09-22 11:59] LABS: BILIRUBIN,URINE NEGATIVE (NEGATIVE); BLOOD/HEMOGLOBIN,URINE NEGATIVE (NEGATIVE); GLUCOSE, URINE NEGATIVE (NEGATIVE); KETONES,URINE NEGATIVE (NEGATIVE); LEUKOCYTE ESTERASE ,URINE NEGATIVE (NEGATIVE); NITRITES,URINE NEGATIVE (NEGATIVE); PROTEIN,URINE NEGATIVE (NEGATIVE); UROBILINOGEN,URINE NORMAL (NORMAL)
[2019-09-22 12:01] LABS: APPEARANCE,URINE CLEAR (CLEAR); COLOR,URINE YELLOW (YELLOW)
[2019-09-22] MEDS: NS 1000 ML 1,000 ML IV SCH (16:30)
[2019-09-22 16:59] LABS: CKMB % 1.4 % (<4); CREATINE KINASE 273 Units/L (39-308); CREATINE KINASE MB 3.8 ng/mL (0-4.0); TROPONIN I < 0.02 ng/mL (0-1.5)
[2019-09-22] MEDS ORDERED: MORPHINE SULFATE INJ 4 MG IVP PRN (17:18)
[2019-09-22] MEDS ORDERED: ZOFRAN INJ 4 MG VIAL IVP PRN ×2 (17:18→18:36)
[2019-09-22 17:58] LABS: BILIRUBIN,URINE NEGATIVE (NEGATIVE); BLOOD/HEMOGLOBIN,URINE NEGATIVE (NEGATIVE); GLUCOSE, URINE NEGATIVE (NEGATIVE); KETONES,URINE NEGATIVE (NEGATIVE); LEUKOCYTE ESTERASE ,URINE NEGATIVE (NEGATIVE); NITRITES,URINE NEGATIVE (NEGATIVE); PROTEIN,URINE NEGATIVE (NEGATIVE); UROBILINOGEN,URINE NORMAL (NORMAL)
[2019-09-22 18:00] LABS: APPEARANCE,URINE CLEAR (CLEAR); COLOR,URINE YELLOW (YELLOW)
[2019-09-22] MEDS: MORPHINE SULFATE INJ 4 MG IVP PRN (19:28)
--- NOTE | 2019-09-22 22:05 | DR.H&P ---
H&P - History & Physical for Day of: H&P Date: 09/22/19 - Chief Complaint Chief Complaint: SYNCOPE, LEFT SHOULDER PAIN, NECK PAIN, HEADACHE, LEFT SIDED WEAKNESS - History of Present Illness History of Present Illness: IS A 59 YEAR OLD PATIENT OF OURS WHO REPORTED TO THE ER WITH COMPLAINTS OF A SYNCOPAL EPISODE THIS MORNING. HE REPORTS FALLING AND HITTING HIS HEAD ON THE CONCRETE FLOOR. HE COMPLAINTS OF HEADACHE, NECK PAIN, LEFT SHOULDER PAIN, AND REPORTS LEFT ARM AND LEG WEAKNESS AFTER FALLING. INCIDENT OCCURRED AT APPROXIMATELY 0500. HE PRESENTED TO THE ER AT 0935. ON EXAMINATION, HE IS NOTED WITH AN ABRASION OT THE LEFT SIDE OF FOREHEAD AND NOSE. ON ARRIVAL, VITALS WERE 97.6-87-18-99%-106/66. LABS WERE OBTAINED. ABNORMAL LAB VALUES INCLUDE THE FOLLOWING: CARBON DIOXIDE 32.4, GLUCOSE 112. CARDIAC ENZYMES WITHIN NORMAL LIMITS. URINALYSIS IS UNREMARKABLE. A CHEST XRAY WAS OBTAINED AND REVEALED: No evidence for acute cardiopulmonary disease. A LEFT SHOULDER XRAY WAS OBTAINED AND REVEALED: Osteoarthritis primarily about the glenohumeral joint. BRAIN CT REVEALED: NO ACUTE INTRACRANIAL ABNORMALITY. CSPINE CT REVEALED: NO DEFINITE EVIDENCE FOR FRACTURE OR DISLOCATION. MULTILEVEL SEVERE DEGENERATIVE DISC DISEASE C3-4 THROUGH C7-T1. 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 DIFFUSE BILATERAL SEVER FACE AND UNCOVERTEBRAL JOINT DJD. EKG REVEALED: SINUS RHYTHM WITH HR 71. HE WAS ADMITTED FOR FURTHER EVALUATION AND TREATMENT OF SYNCOPAL EPISODE AND LEFT SIDED WEAKNESS. HE WAS STARTED ON NORMAL SALINE AT 50ML/HR, ZOFRAN 4MG IV Q4H PRN, AND MORPHINE 4MG IV Q6H PRN. OTHERWISE, WE PLAN TO OBTAIN SERIAL CARDIAC ENZYMES AND EKGS. WE WILL FOLLOW UP WITH AM LABS AND CONTINUE TO MONITOR. - Past Medical History Past Medical History: Hypertension, GERD Additional Medical History: Hx of recent pneumonia - Past Surgical History Surgical History: Cholecystectomy - Family History Family Medical History: Cancer - Social History Does patient currently use any type of tobacco product: No Have you used tobacco products in the last 12 months: No Type of Tobacco Use: None Does any household member use tobacco: No Alcohol Use: None - Medications Home Medications: No Known Drug Allergies Allergy (Verified 01/19/18 23:53) CONTINUE taking the following medications pantoprazole 40 mg PO DAILY 09/22/19 [History] tramadol 50 mg PO HS 09/22/19 [History] valsartan-hydrochlorothiazide 1 tab PO DAILY 09/22/19 [History] - Review of Systems Constitutional: Weakness Eyes: No Symptoms Reported ENT: No Symptoms Reported Respiratory: No Symptoms Reported Cardiovascular: No Symptoms Reported Gastrointestinal: No Symptoms Reported Genitourinary: No Symptoms Reported Musculoskeletal: See HPI, Shoulder Pain, Back Pain, Neck Pain Skin: See HPI, Wound (FOREHEAD AND NOSE ABRASION ) Neurological: Weakness - Physical Exam Vital Signs: Temperature 98.1 F Pulse Rate [Left Brachial] 90 Pulse Rate [Standing] 65 Pulse Rate [Sitting] 66 Pulse Rate [Lying] 62 Pulse Rate 87 Respiratory Rate 20 Blood Pressure [Left Arm] 101/63 Blood Pressure [Right Arm] 111/65 Blood Pressure [Standing] 128/84 Blood Pressure [Sitting] 133/87 Blood Pressure [Lying] 112/84 Blood Pressure 106/66 O2 Sat by Pulse Oximetry 96 Oriented: Normal Eyes: Normal Ear: Normal Nose: Normal Throat: Normal Respiratory: Diminished Throughout Cardiovascular: Normal : Normal Auscultation: Bowel Sounds: Normal Palpation: Normal Tenderness: Normal Skin: Wound Musculoskeletal: Left, Shoulder, Back:Thoracic, Back:Paraspinous Psychiatric: Normal Mood Description: Calm Affect: Normal Speech Pattern: Clear - Assessment/Plan (1) Episode of syncope Qualifiers: Syncope type: unspecified Qualified Code(s): R55 - Syncope and collapse Status: Acute Plan: admit, iv fluids, serial cardiac enzymes and ekgs, continue to monitor (2) Left-sided weakness Status: Acute - Allergies Allergies/Adverse Reactions: Allergies Allergy/AdvReac Type Severity Reaction Status Date / Time No Known Drug Allergies Allergy Verified 01/19/18 23:53
[2019-09-22 22:28] LABS: CKMB % 1.2 % (<4); CREATINE KINASE 308 Units/L (39-308); CREATINE KINASE MB 3.6 ng/mL (0-4.0); TROPONIN I < 0.02 ng/mL (0-1.5)
[2019-09-23] MEDS: MORPHINE SULFATE INJ 4 MG IVP PRN ×2 (01:00→09:16)
[2019-09-23 04:41] LABS: BASOPHILS # (AUTO) 0.1 X10^3/uL (0.0-0.1); BASOPHILS % (AUTO) 0.5 % (0.2-1.0); EOSINOPHILS # (AUTO) 0.5 x10^3/uL (0.0-0.2); HEMOGLOBIN 15.2 g/dL (13.5-18.0); LYMPHOCYTES # (AUTO) 2.8 X10^3/uL (1.3-2.9); LYMPHOCYTES % (AUTO) 28.2 % (21.0-51.0); MEAN CORPUSCULAR HEMOGLOBIN 29.6 pg (27.0-34.0); MEAN CORPUSCULAR HGB CONC 33.7 g/dL (33.0-35.0); MEAN CORPUSCULAR VOLUME 87.7 fL (80.0-100.0); MEAN PLATELET VOLUME 8.3 fL (7.4-11.0); MONOCYTES # (AUTO) 1.1 x10^3/uL (0.3-0.8); NEUTROPHILS # (AUTO) 5.4 x10^3/uL (2.2-4.8); NEUTROPHILS % (AUTO) 55.3 % (42.0-75.0); PLATELET COUNT 289 X10^3/uL (150.0-450.0); RED BLOOD COUNT 5.13 X10^6/uL (4.7-6.0); RED CELL DISTRIBUTION WIDTH 13.3 % (11.6-16.5); WHITE BLOOD COUNT 9.8 X10^3/uL (3.6-10.0)
[2019-09-23 05:00] LABS: ALANINE AMINOTRANSFERASE 26 Units/L (12-78); ALBUMIN 3.1 g/dL (3.4-5.0); ALKALINE PHOSPHATASE 84 Units/L (46-116); ASPARTATE AMINO TRANSFERASE 45 Units/L (15-37); BLOOD UREA NITROGEN 13 mg/dL (7-18); CALCIUM 8.8 mg/dL (8.5-10.1); CARBON DIOXIDE 30.6 mmol/L (21-32); CHLORIDE 104 mmol/L (98-107); CHOL/HDL RATIO 2.8 (0.0-5.0); CHOLESTEROL 157 mg/dL (0-200); CKMB % 1.1 % (<4); COR CA(FOR HYPOALB) 9.5 mg/dL (8.5-10.1); CREATINE KINASE 270 Units/L (39-308); CREATININE 1.21 mg/dL (0.70-1.30); HDL CHOLESTEROL 57 mg/dL (40-60); MAGNESIUM 1.7 mg/dL (1.7-2.9); SODIUM 138 mmol/L (136-145); TOTAL PROTEIN 7.3 g/dL (6.4-8.2); TRIGLYCERIDES 104 mg/dL (0-150); TROPONIN I < 0.02 ng/mL (0-1.5); eGFR NON BLACK RACES > 60 (>60)
[2019-09-23] MEDS: NS 1000 ML 1,000 ML IV SCH (05:59)
[2019-09-23 12:35] VITALS: BP 91/62
--- NOTE | 2019-09-23 13:33 | MRI ---
History: History of falls with mental status changesExam: MRI brain without contrastComparison: CT head 05/14/2018Technique: Routine multiplanar multisequence imaging was performed through the brain without contrast.Findings:The ventricles are normal. There is no abnormal signal on the diffusion-weighted data set which would suggest any type of acute ischemia. The vascular structures show normal flow voids. The 7th and 8th nerve complexes are symmetric and normal size and signal intensity. The orbits are unremarkable. There are minimal punctate and mildly confluent areas of abnormal signal scattered in the deep white matter laterally and posteriorly around the ventricles. No intracranial hemorrhage or edema is seen and there is no extra-axial fluid collection or mass. The midline structures are unremarkable.IMPRESSION: Mild chronic microischemic changes in the deep white matter with no acute intracranial abnormality seen.Reported By:
== END 2019-09-23 14:25 | disposition home or self-care (01) ==
LOC: ER 09:24 → MED/SURG 09:24
PROVIDERS: ADMIT Internal Medicine; ATTEND Internal Medicine
DX: I10 Essential (primary) hypertension; K21.9 Gastro-esophageal reflux disease without esophagitis; R55 Syncope and collapse; R53.1 Weakness; R51 Headache; M54.2 Cervicalgia; R94.31 Abnormal electrocardiogram [ECG] [EKG]; M62.81 Muscle weakness (generalized); R07.89 Other chest pain; M25.512 Pain in left shoulder; S00.81XA Abrasion of other part of head, initial encounter; W18.39XA Other fall on same level, initial encounter
CPT/HCPCS: 36415; 70450; 70551; 71010; 71045; 72125; 73030; 80053; 80061; 81003; 82550; 82553; 83735; 84484; 85025; 93005; 94760; 96360; 96361; 96365; 96372; 96374; A4222; G0378; J2270; J2405; J7030

== ENCOUNTER 2020-07-10 14:03 | Inpatient (IN) ==
[2020-07-10 14:26] VITALS: BMI 27.0
--- NOTE | 2020-07-10 19:53 | RAD ---
HISTORYPT C/O INCREASING SHORTNESS OF BREATH, COUGHING, FEVER. PT STATES HE WAS DIAGNOSED WITH PNUEMONIA 2 WEEKS AGOSTUDYCHEST, 1 [id number]/11/2020FINDINGSThe trachea is midline. Heart size is unchanged. Interstitial coarsening and likely COPD changes are again noted however there is persistent dense consolidation with air bronchograms within the left mid and lower lung. No pleural effusion or pneumothorax.IMPRESSIONNo significant proved aeration with persistent dense consolidation air bronchograms within the left mid and lower lung likely in setting of chronic interstitial lung disease/organizing pneumonia with a superimposed acute infection. Given nodular appearance on recent CT examination a follow-up chest CT in 3 months is recommended.Chronic interstitial lung changes and COPD.Electronically signed by: EVERETT SANDERSON (Jul 10, 2020 19:52:48)
[2020-07-10 19:56] LABS: BASOPHILS # (AUTO) 0.1 X10^3/uL (0.0-0.1); BASOPHILS % (AUTO) 0.5 % (0.2-1.0); EOSINOPHILS # (AUTO) 0.3 x10^3/uL (0.0-0.2); HEMATOCRIT 45.8 % (42.0-54.0); LYMPHOCYTES # (AUTO) 1.6 X10^3/uL (1.3-2.9); LYMPHOCYTES % (AUTO) 9.7 % (21.0-51.0); MEAN CORPUSCULAR HEMOGLOBIN 29.6 pg (27.0-34.0); MEAN CORPUSCULAR HGB CONC 32.8 g/dL (33.0-35.0); MEAN CORPUSCULAR VOLUME 90.5 fL (80.0-100.0); MEAN PLATELET VOLUME 7.7 fL (7.4-11.0); MONOCYTES # (AUTO) 1.7 x10^3/uL (0.3-0.8); MONOCYTES % (AUTO) 9.8 % (0.0-13.0); NEUTROPHILS # (AUTO) 13.1 x10^3/uL (2.2-4.8); PLATELET COUNT 283 X10^3/uL (150.0-450.0); RED BLOOD COUNT 5.06 X10^6/uL (4.7-6.0); RED CELL DISTRIBUTION WIDTH 14.5 % (11.6-16.5); WHITE BLOOD COUNT 16.8 X10^3/uL (3.6-10.0)
[2020-07-10 20:05] LABS: ALANINE AMINOTRANSFERASE 18 Units/L (12-78); ALBUMIN 2.9 g/dL (3.4-5.0); ALKALINE PHOSPHATASE 80 Units/L (46-116); ASPARTATE AMINO TRANSFERASE 18 Units/L (15-37); BLOOD UREA NITROGEN 8 mg/dL (7-18); CALCIUM 9.3 mg/dL (8.5-10.1); CHLORIDE 100 mmol/L (98-107); COR CA(FOR HYPOALB) 10.2 mg/dL (8.5-10.1); CREATININE 1.06 mg/dL (0.70-1.30); SODIUM 139 mmol/L (136-145); TOTAL PROTEIN 8.2 g/dL (6.4-8.2); eGFR NON BLACK RACES > 60 (>60)
[2020-07-10] MEDS ORDERED: PROVENTIL NEB TX 0.083% 2.5MG/ 3ML NEB ONE (20:28)
[2020-07-10] MEDS ORDERED: TUSSIONEX PENNKINETIC SUSP PO ONE (20:28)
--- NOTE | 2020-07-10 20:28 | DR.SOBA ---
HPI Time Seen Time Seen by Provider: 07/10/20 16:44 Primary Care Physician Primary Care Physician: PRATIK HPI Comment HPI Comment: Patient with cough x 3-4 days. Notes that he saw his PCP and had a CXR done which showed PNA. Sent to the ED for admission. Patient denies any sick contacts. Complaints Chief Complaint:: PT C/O INCREASING SHORTNESS OF BREATH, COUGHING, FEVER. PT STATES HE WAS DIAGNOSED WITH PNUEMONIA 2 WEEKS AGO WHEN HE WAS A PATIENT IN THE ED. PT WAS SWABBED FOR COVID 19. PT HAS BEEN ON MEDICATIONS OUTPATIENT WITH WORSENING SYMPTOMS. COVID-19 Coronavirus risk:travel/contact w/high risk person: No Has patient experienced Coronavirus symptoms: Yes Coronavirus symptoms experienced: Fever, Coughing and Shortness of Breath Source History Provided: Patient Mode of Arrival Mode of Arrival: Ambulatory Timing Onset of Chief Complaint: 06/19/20 PMH PMH Past Medical History: Yes Past Medical History: GERD and Hypertension Past Surgical History: Yes Surgical History: Cholecystectomy Family History History of Family Medical Conditions: Yes Family Medical History: Cancer Social History Does any household member use tobacco: No Alcohol Use: None Do you use any recreational Drugs:: No Lives With: Family Lives Where: Home Travel Risk Coronavirus risk:travel/contact w/high risk person: No Has patient experienced Coronavirus symptoms: Yes Coronavirus symptoms experienced: Fever, Coughing and Shortness of Breath Infectious screening In the last 2 months have you had wt loss of >10#?: NO Have you had fever, night sweats or hemotysis?: No Have you traveled outside the country in the last 6 months?: No Isolation: Droplet ROS Review of Systems Constitutional: See HPI Respiratoy: Dry Cough and Wheezing All Other Systems: Reviewed and Negative PE Vital Signs Vitals: Temperature 97.9 F Pulse Rate [Left Brachial] 97 Pulse Rate 99 Respiratory Rate 25 Blood Pressure [Left Arm] 173/88 Blood Pressure [Right Arm] 111/65 Blood Pressure [Standing] 128/84 Blood Pressure [Sitting] 133/87 Blood Pressure [Lying] 112/84 Blood Pressure 152/67 O2 Sat by Pulse Oximetry 90 General Limitations: No Limitations General Appearance: Alert and In No Apparent Distress Head Head Exam: Normal Inspection, Atraumatic and Normocephalic ENT ENT Exam: Normal Exam Neck Neck Exam: Normal Inspection and Trachea Midline Chest Chest Inspection: Normal Inspection and Symmetric Chest Wall Rise Respiratory Respiratory Exam: Bilateral: Wheezing Cardiovascular Cardiovascular Exam: Regular Rate, Normal Rhythm and Normal Heart Sounds Abdominal Exam Abdominal Exam: Normal Inspection ROR Labs Reviewed Result Diagrams: 07/10/20 19:47 07/10/20 19:47 Laboratory: WBC 16.8 X10^3/uL (3.6-10.0) H 07/10/20 19:47 RBC 5.06 X10^6/uL (4.7-6.0) 07/10/20 19:47 Hgb 15.0 g/dL (13.5-18.0) 07/10/20 19:47 Hct 45.8 % (42.0-54.0) 07/10/20 19:47 MCV 90.5 fL (80.0-100.0) 07/10/20 19:47 MCH 29.6 pg (27.0-34.0) 07/10/20 19:47 MCHC 32.8 g/dL (33.0-35.0) L 07/10/20 19:47 RDW 14.5 % (11.6-16.5) 07/10/20 19:47 Plt Count 283 X10^3/uL (150.0-450.0) 07/10/20 19:47 MPV 7.7 fL (7.4-11.0) 07/10/20 19:47 Neut % (Auto) 78.0 % (42.0-75.0) H 07/10/20 19:47 Lymph % (Auto) 9.7 % (21.0-51.0) L 07/10/20 19:47 [place] % (Auto) 9.8 % (0.0-13.0) 07/10/20 19:47 Eos % (Auto) 2.0 % (0.9-2.9) 07/10/20 19:47 Baso % (Auto) 0.5 % (0.2-1.0) 07/10/20 19:47 Neut # (Auto) 13.1 x10^3/uL (2.2-4.8) H 07/10/20 19:47 Lymph # (Auto) 1.6 X10^3/uL (1.3-2.9) 07/10/20 19:47 [place] # (Auto) 1.7 x10^3/uL (0.3-0.8) H 07/10/20 19:47 Eos # (Auto) 0.3 x10^3/uL (0.0-0.2) H 07/10/20 19:47 Baso # (Auto) 0.1 X10^3/uL (0.0-0.1) 07/10/20 19:47 Absolute Nucleated RBC 0.0 /100WBC 07/10/20 19:47 Sodium 139 mmol/L (136-145) 07/10/20 19:47 Corrected Sodium TNP 07/10/20 19:47 Potassium 3.8 mmol/L (3.5-5.1) 07/10/20 19:47 Chloride 100 mmol/L (98-107) 07/10/20 19:47 Carbon Dioxide 28.0 mmol/L (21-32) 07/10/20 19:47 BUN 8 mg/dL (7-18) 07/10/20 19:47 Creatinine 1.06 mg/dL (0.70-1.30) 07/10/20 19:47 Est GFR (MDRD) Af Amer > 60 (>60) 07/10/20 19:47 Est GFR (MDRD) Non-Af > 60 (>60) 07/10/20 19:47 Glucose 97 mg/dL (65-99) 07/10/20 19:47 Calcium 9.3 mg/dL (8.5-10.1) 07/10/20 19:47 Corrected Calcium 10.2 mg/dL (8.5-10.1) H 07/10/20 19:47 Total Bilirubin 0.80 mg/dL (0.2-1.0) 07/10/20 19:47 AST 18 Units/L (15-37) 07/10/20 19:47 ALT 18 Units/L (12-78) 07/10/20 19:47 Alkaline Phosphatase 80 Units/L (46-116) 07/10/20 19:47 Total Protein 8.2 g/dL (6.4-8.2) 07/10/20 19:47 Albumin 2.9 g/dL (3.4-5.0) L 07/10/20 19:47 Globulin 5.3 g/dL (2.5-4.5) H 07/10/20 19:47 Albumin/Globulin Ratio 0.5 Ratio (1.1-2.1) L 07/10/20 19:47 Influenza Type A Ag Negative-presumptive (NEGATIVE) 07/10/20 19:37 Influenza Type B Ag Negative-presumptive (NEGATIVE) 07/10/20 19:37 Other Results Comments: HISTORY SOB, DIARRHEA, WEAKNESS STUDY CHEST, 1 VIEW COMPARISON 09/22/2019 TECHNIQUE AP view of the chest FINDINGS Cardiac silhouette is borderline in size. Mediastinal contours appear normal. Diffuse bilateral interstitial opacities with suspected superimposed left base infiltrate. No pleural effusion or pneumothorax. IMPRESSION Diffuse chronic interstitial opacities. Suspect a superimposed left base infiltrate may represent pneumonia. Electronically signed by: Gilles Otto (Jun 22, 2020 10:50:28) Opioid Opioid Risk Tool Age ([place] box if 16-45): No History of Preadolescent Sexual Abuse: No Total: 0 Total Score Risk Category: Low Risk Copyright: Sheldon SHARP predicting aberrant behaviors Diagnosis Discharge Problem: Pneumonia
[2020-07-10] MEDS ORDERED: TUSSIONEX PENNKINETIC SUSP ONE (20:36)
[2020-07-10] MEDS ORDERED: LEVAQUIN PREMIX IV 750 MG 750 MG/150 ML BAG IV ONE (20:38)
[2020-07-10] MEDS ORDERED: PROVENTIL NEB TX 0.083% 2.5MG/ 3ML ONE (20:40)
[2020-07-10] MEDS: DUONEB 0.5 MG/3 MG (3 mL) NEB SCH ×2 (20:45→20:56)
[2020-07-10 21:02] LABS: BASOPHILS # (AUTO) 0.1 X10^3/uL (0.0-0.1); BASOPHILS % (AUTO) 0.7 % (0.2-1.0); EOSINOPHILS # (AUTO) 0.4 x10^3/uL (0.0-0.2); EOSINOPHILS % (AUTO) 2.2 % (0.9-2.9); HEMATOCRIT 44.5 % (42.0-54.0); HEMOGLOBIN 14.6 g/dL (13.5-18.0); LYMPHOCYTES # (AUTO) 1.9 X10^3/uL (1.3-2.9); LYMPHOCYTES % (AUTO) 11.4 % (21.0-51.0); MEAN CORPUSCULAR HEMOGLOBIN 29.7 pg (27.0-34.0); MEAN CORPUSCULAR HGB CONC 32.8 g/dL (33.0-35.0); MEAN CORPUSCULAR VOLUME 90.4 fL (80.0-100.0); MEAN PLATELET VOLUME 8.1 fL (7.4-11.0); MONOCYTES # (AUTO) 1.7 x10^3/uL (0.3-0.8); MONOCYTES % (AUTO) 10.3 % (0.0-13.0); NEUTROPHILS # (AUTO) 12.4 x10^3/uL (2.2-4.8); NEUTROPHILS % (AUTO) 75.4 % (42.0-75.0); PLATELET COUNT 260 X10^3/uL (150.0-450.0); RED BLOOD COUNT 4.92 X10^6/uL (4.7-6.0); RED CELL DISTRIBUTION WIDTH 14.7 % (11.6-16.5); WHITE BLOOD COUNT 16.4 X10^3/uL (3.6-10.0)
[2020-07-10 21:12] LABS: ALANINE AMINOTRANSFERASE 15 Units/L (12-78); ALBUMIN 2.8 g/dL (3.4-5.0); ALKALINE PHOSPHATASE 78 Units/L (46-116); ASPARTATE AMINO TRANSFERASE 17 Units/L (15-37); BLOOD UREA NITROGEN 8 mg/dL (7-18); CALCIUM 8.9 mg/dL (8.5-10.1); CHLORIDE 102 mmol/L (98-107); COR CA(FOR HYPOALB) 9.9 mg/dL (8.5-10.1); CREATININE 1.06 mg/dL (0.70-1.30); SODIUM 139 mmol/L (136-145); eGFR NON BLACK RACES > 60 (>60)
[2020-07-11] MEDS ORDERED: TUSSIONEX PENNKINETIC SUSP PO PRN (00:07)
[2020-07-11] MEDS ORDERED: TUSSIONEX PENNKINETIC SUSP ONE (00:08)
[2020-07-11] MEDS ORDERED: DUONEB 0.5 MG/3 MG (3 mL) NEB ONE (00:44)
[2020-07-11] MEDS: DUONEB 0.5 MG/3 MG (3 mL) NEB SCH ×4 (00:55→18:31)
[2020-07-11] MEDS ORDERED: ROBITUSSIN DM PO PRN (04:15)
[2020-07-11] MEDS ORDERED: ROBITUSSIN DM ONE (04:16)
[2020-07-11 04:17] LABS: BASOPHILS # (AUTO) 0.1 X10^3/uL (0.0-0.1); BASOPHILS % (AUTO) 0.7 % (0.2-1.0); EOSINOPHILS # (AUTO) 0.3 x10^3/uL (0.0-0.2); EOSINOPHILS % (AUTO) 1.9 % (0.9-2.9); HEMATOCRIT 42.2 % (42.0-54.0); HEMOGLOBIN 13.9 g/dL (13.5-18.0); LYMPHOCYTES # (AUTO) 1.6 X10^3/uL (1.3-2.9); LYMPHOCYTES % (AUTO) 11.5 % (21.0-51.0); MEAN CORPUSCULAR HEMOGLOBIN 29.7 pg (27.0-34.0); MEAN CORPUSCULAR VOLUME 90.1 fL (80.0-100.0); MEAN PLATELET VOLUME 7.7 fL (7.4-11.0); MONOCYTES # (AUTO) 1.7 x10^3/uL (0.3-0.8); MONOCYTES % (AUTO) 11.9 % (0.0-13.0); NEUTROPHILS # (AUTO) 10.5 x10^3/uL (2.2-4.8); PLATELET COUNT 259 X10^3/uL (150.0-450.0); RED BLOOD COUNT 4.68 X10^6/uL (4.7-6.0); RED CELL DISTRIBUTION WIDTH 14.4 % (11.6-16.5); WHITE BLOOD COUNT 14.2 X10^3/uL (3.6-10.0)
[2020-07-11 04:29] LABS: ALANINE AMINOTRANSFERASE 14 Units/L (12-78); ALBUMIN 2.5 g/dL (3.4-5.0); ALKALINE PHOSPHATASE 75 Units/L (46-116); ASPARTATE AMINO TRANSFERASE 16 Units/L (15-37); BLOOD UREA NITROGEN 8 mg/dL (7-18); CALCIUM 8.9 mg/dL (8.5-10.1); CARBON DIOXIDE 28.9 mmol/L (21-32); CHLORIDE 102 mmol/L (98-107); COR CA(FOR HYPOALB) 10.1 mg/dL (8.5-10.1); SODIUM 138 mmol/L (136-145); TOTAL PROTEIN 7.6 g/dL (6.4-8.2); eGFR NON BLACK RACES > 60 (>60)
[2020-07-11] MEDS: LEVAQUIN PREMIX IV 750 MG 750 MG/150 ML BAG IV SCH (07:59)
[2020-07-11] MEDS: LOVENOX INJ 40 MG SYR SC SCH (09:08)
[2020-07-11] MEDS: ROBITUSSIN DM PO SCH ×4 (09:09→21:00)
[2020-07-11] MEDS: PULMICORT NEB TX 0.5 MG NEB SCH ×2 (09:50→21:00)
[2020-07-11] MEDS ORDERED: PATIENT'S HOME MEDICATION (Valsartan-Hydrochlorothiazide 1 TAB) PO SCH (11:00)
[2020-07-11 11:39] LABS: ABG BASE EXCESS 4.7 mmol/L (-2.0-2.0); ABG HCO3 29.2 mmol/L (22-26)
[2020-07-11] MEDS: SOLU-Medrol 40 MG VIAL IVP SCH ×3 (13:02→21:00)
[2020-07-11] MEDS: ULTRAM PO SCH ×3 (13:03→21:00)
[2020-07-11] MEDS: TUSSIONEX PENNKINETIC SUSP PO SCH ×2 (13:04→22:00)
[2020-07-11] MEDS: TESSALON PERLES PO SCH ×3 (13:04→21:00)
[2020-07-11] MEDS: PROTONIX TAB 40 MG PO SCH (13:05)
[2020-07-11] MEDS: HYDROCHLOROTHIAZIDE 12.5 MG CAP PO SCH (13:05)
[2020-07-11] MEDS: DIOVAN TAB 80 MG PO SCH (13:05)
[2020-07-11] MEDS: MORPHINE SULFATE JET NEB NEB SCH ×2 (14:00→18:31)
--- NOTE | 2020-07-11 20:46 | DR.H&P ---
H&P - History & Physical for Day of: H&P Date: 07/10/20 - Chief Complaint Chief Complaint: COUGH, SOB, FEVER - History of Present Illness History of Present Illness: IS A 59 YEAR OLD PATIENT OF OURS. HE PRESENTED TO THE ER WITH COMPLAINTS OF PERSISTENT, PRODUCTIVE COUGH, SHORTNESS OF BREATH, AND FEVER. PATIENT REPORTS THAT HE WAS DIAGNOSED WITH PNEUMONIA TWO WEEKS AGO. HE WAS ALSO SWABBED FOR COVID-19 AT THAT TIME AND WAS NEGATIVE. HE WAS PRESCRIBED LEVAQUIN 500MG PO DAILY X 10 DAYS, A MEDROL DOSEPACK, AND A SYMBICORT INHALER. HE TOOK THESE FOR A WEEK, HOWEVER, SYMPTOMS PERSISTED. HE WAS THEN PLACED ON A Z-PACK AND DEXAMETHASONE 6MG PO DAILY X 5 DAYS. HE FINISHED THIS COURSE OF MEDICATIONS, BUT DENIES IMPROVEMENT IN SYMPTOMS. HIS PMH INCLUDES COPD, GERD, HYPERTENSION, AND A CHOLECYSTECTOMY. ON ARRIVAL, VITALS WERE 97.8-99 -30-91%-152/67. LABS WERE OBTAINED. ABNORMAL LAB VALUES INCLUDE THE FOLLOWING: WBC 16.8, ALBUMIN 2.9, GLOBULIN 5.3. INFLUENZA AND COVID NEGATIVE. A CHEST XRAY WAS OBTAINED AND REVEALED: No significant proved aeration with persistent dense consolidation air bronchograms within the left mid and lower lung likely in setting of chronic interstitial lung disease/organizing pneumonia with a superimposed acute infection. Given nodular appearance on recent CT examination a follow-up chest CT in 3 months is recommended. Chronic interstitial lung changes and COPD. ON HIS 06/22 VISIT TO THE ER, AN ABDOMEN/PELVIS CT WAS OBTAINED AND REVEALED: he left lung base demonstrates areas reticulation and nodules with intralobar thickening. There is a band like nodule within the medial aspect of the knee with the largest component measuring 1.3 x 1.2 centimeters. Within the altered interstitial pattern there is ground-glass opacities. There is focal changes involving the posterior right lobe. The abdominal aorta and subcutaneous tissues are unremarkable. The bone windows demonstrate advanced multilevel discogenic degenerative disease without aggressive lesion. HE WAS GIVEN A PROVENTIL NEB [place], TUSSIONEX 5ML PO X 1 DOSE, AND LEVAQUIN 750MG IV X 1 DOSE. HE DENIED SIGNIFICANT IMPROVEMENT IN SYMPTOMS. HE WAS ADMITTED TO THE HOSPITAL FOR FURTHER EVALUATION AND TREATMENT OF PNEUMONIA. HE WAS STARTED ON LEVAQUIN 750MG IV DAILY, SOLU-MEDROL 40MG IV Q8H, DUONEBS Q6H, TUSSIONEX 5ML PO Q12H, LOVENOX 40MG SC DAILY, ROBITUSSIN 10ML PO QID, AND HIS HOME MEDICATIONS WERE RESUMED. OTHERWISE, WE WILL FOLLOW UP WITH AM LABS AND CONTINUE TO MONITOR. TIME SPENT ON CLINICAL ASSESSMENT, REVIEWING LABS AND IMAGING, DECISION MAKING, AND DOCUMENTATION GREATER THAN 74 MINUTES. - Past Medical History Past Medical History: COPD, GERD, Hypertension Additional Medical History: Hx of recent pneumonia - Past Surgical History Surgical History: Cholecystectomy - Family History Family Medical History: Cancer - Social History Does patient currently use any type of tobacco product: No Have you used tobacco products in the last 12 months: No Type of Tobacco Use: None Does any household member use tobacco: No Alcohol Use: None Drug Use: None Prescription drug monitoring program results: PDMP reviewed and no concerns identified - Medications Home Medications: No Known Drug Allergies Allergy (Verified 01/19/18 23:53) CONTINUE taking the following medications budesonide-formoterol [Symbicort] 1 inh INHALATION BID 07/10/20 [History] - Review of Systems Constitutional: Fever, Weakness Eyes: No Symptoms Reported ENT: No Symptoms Reported Respiratory: See HPI, Cough, Shortness of Breath, SOB with Excertion, Sputum Cardiovascular: No Symptoms Reported Gastrointestinal: No Symptoms Reported Genitourinary: No Symptoms Reported Musculoskeletal: No Symptoms Reported Skin: No Symptoms Reported Neurological: Weakness - Physical Exam Vital Signs: Temperature 98.0 F Pulse Rate [Left Brachial] 80 Pulse Rate 85 Respiratory Rate 22 Blood Pressure [Left Arm] 123/80 Blood Pressure [Right Arm] 149/94 Blood Pressure [Standing] 128/84 Blood Pressure [Sitting] 133/87 Blood Pressure [Lying] 112/84 Blood Pressure 152/67 O2 Sat by Pulse Oximetry 97 Oriented: Normal Eyes: Normal Ear: Normal Nose: Normal Throat: Normal Respiratory: Diminished Throughout, Wheezes Throughout Cardiovascular: Normal : Normal Auscultation: Bowel Sounds: Normal Palpation: Normal Tenderness: Normal Skin: Normal Musculoskeletal: Normal Psychiatric: Normal Mood Description: Calm Affect: Normal Speech Pattern: Clear - Assessment/Plan (1) Pneumonia Status: Acute Plan: ADMIT, LEVAQUIN 750MG IV DAILY, SOLU-MEDROL 40MG IV Q8H, DUONEBS Q6H, TUSSIONEX 5ML PO Q12H, LOVENOX 40MG SC DAILY, ROBITUSSIN 10ML PO QID, AND HIS HOME MEDICATIONS WERE RESUMED. SUPPLEMENTAL OXYGEN (2) COPD (chronic obstructive pulmonary disease) Qualifiers: COPD type: unspecified COPD Qualified Code(s): J44.9 - Chronic obstructive pulmonary disease, unspecified Status: Acute - Allergies Allergies/Adverse Reactions: Allergies Allergy/AdvReac Type Severity Reaction Status Date / Time No Known Drug Allergies Allergy Verified 01/19/18 23:53
[2020-07-12] MEDS: MORPHINE SULFATE JET NEB NEB SCH ×5 (00:30→20:15)
[2020-07-12] MEDS: DUONEB 0.5 MG/3 MG (3 mL) NEB SCH ×4 (00:30→17:13)
--- NOTE | 2020-07-12 05:34 | RAD ---
HISTORYSOBSTUDYCHEST, 1 [id number] trachea is midline. The cardiac silhouette is mildly prominent, stable. Bilateral pulmonary opacities/infiltrates not appreciably changed. Air bronchogram in the retrocardiac region again seen.. The bony thorax is unremarkable.IMPRESSIONNo appreciable interval change.Electronically signed by: Cherise Oliva (Jul 12, 2020 05:34:32)
[2020-07-12 06:14] LABS: BASOPHILS % (AUTO) 0 % (0.2-1.0); HEMATOCRIT 43.6 % (42.0-54.0); HEMOGLOBIN 14.4 g/dL (13.5-18.0); LYMPHOCYTES # (AUTO) 0.8 X10^3/uL (1.3-2.9); LYMPHOCYTES % (AUTO) 5.4 % (21.0-51.0); MEAN CORPUSCULAR HGB CONC 33.1 g/dL (33.0-35.0); MEAN CORPUSCULAR VOLUME 90.6 fL (80.0-100.0); MONOCYTES # (AUTO) 0.6 x10^3/uL (0.3-0.8); MONOCYTES % (AUTO) 4.3 % (0.0-13.0); NEUTROPHILS # (AUTO) 13.1 x10^3/uL (2.2-4.8); NEUTROPHILS % (AUTO) 90.3 % (42.0-75.0); PLATELET COUNT 310 X10^3/uL (150.0-450.0); RED BLOOD COUNT 4.81 X10^6/uL (4.7-6.0); RED CELL DISTRIBUTION WIDTH 14.2 % (11.6-16.5); WHITE BLOOD COUNT 14.5 X10^3/uL (3.6-10.0)
[2020-07-12] MEDS: ULTRAM PO SCH ×3 (06:39→22:16)
[2020-07-12] MEDS: TESSALON PERLES PO SCH ×3 (06:39→22:16)
[2020-07-12] MEDS: SOLU-Medrol 40 MG VIAL IVP SCH ×3 (06:39→22:16)
[2020-07-12 06:44] LABS: ALANINE AMINOTRANSFERASE 16 Units/L (12-78); ALBUMIN 2.7 g/dL (3.4-5.0); ALKALINE PHOSPHATASE 77 Units/L (46-116); ASPARTATE AMINO TRANSFERASE 20 Units/L (15-37); BLOOD UREA NITROGEN 13 mg/dL (7-18); CALCIUM 9.4 mg/dL (8.5-10.1); CARBON DIOXIDE 25.9 mmol/L (21-32); CHLORIDE 99 mmol/L (98-107); COR CA(FOR HYPOALB) 10.4 mg/dL (8.5-10.1); COR NA(FOR HYPERGLY) 137 mmol/L (136-145); CREATININE 1.17 mg/dL (0.70-1.30); SODIUM 136 mmol/L (136-145); TOTAL PROTEIN 8.2 g/dL (6.4-8.2); eGFR NON BLACK RACES > 60 (>60)
[2020-07-12 07:57] LABS: PLATELET MORPHOLOGY COMMENT NORMAL (NORMAL)
[2020-07-12] MEDS: PULMICORT NEB TX 0.5 MG NEB SCH ×2 (08:53→21:05)
[2020-07-12] MEDS: DIOVAN TAB 80 MG PO SCH (09:21)
[2020-07-12] MEDS: PROTONIX TAB 40 MG PO SCH (09:21)
[2020-07-12] MEDS: HYDROCHLOROTHIAZIDE 12.5 MG CAP PO SCH (09:21)
[2020-07-12] MEDS: ROBITUSSIN DM PO SCH ×4 (09:21→21:00)
[2020-07-12] MEDS: LOVENOX INJ 40 MG SYR SC SCH (09:21)
[2020-07-12] MEDS: LEVAQUIN PREMIX IV 750 MG 750 MG/150 ML BAG IV SCH (09:30)
[2020-07-12] MEDS: TUSSIONEX PENNKINETIC SUSP PO SCH ×2 (10:42→22:18)
[2020-07-12] MEDS: TEMOVATE CREAM EXT SCH ×2 (11:36→21:30)
[2020-07-12] MEDS: AQUAPHOR TOP SCH ×2 (11:36→21:30)
--- NOTE | 2020-07-12 11:44 | PCM.PROG ---
Progress Note - Progress Note for Day of Date of Exam: 07/12/20 - Subjective Subjective: WAS ADMITTED YESTERDAY FOR TREATMENT OF PNEUMONIA. TODAY, HE IS ALERT AND OREINTED, LYING IN BED ON MORNING ROUNDS. HE CONTINUES WITH COUGH AND SHORTNESS OF BREATH TODAY. HE DOES ADMIT TO SLIGHT IMPROVEMENT IN SYMPTOMS SINCE ONE DAY PRIOR. HE CONTINUES TO UTILIZE OXYGEN VIA NASAL CANNULA AT 2L/MIN. HE ALSO REPORTS REDNESS AND ITCHING TO HIS LEFT ARM. HE REPORTS THAT THE REDNESS HAS BEEN THERE FOR MONTHS, BUT THE ITCHING HAS BEEN WORSE THE PAST FEW DAYS. ON EXAMINATION, HEART IS REGULAR IN RATE AND RHYTHM. BILATERAL LUNGS ARE NOTED WITH SCATTERED WHEEZING THROUGHOUT. LEFT ARM IS NOTED WITH ERYTHEMA. ABDOMEN IS ROUND, SOFT, AND NON-TENDER WITH NORMAL BOWEL SOUNDS NOTED IN ALL QUADRANTS. HIS VITALS THIS MORNING ARE: 98.0-100-20-93%NC-138/80. LABS WERE OBTAINED. ABNORMAL LAB VALUES INCLUDE THE FOLLOWING: WBC 14.5, GLUCOSE 142, ALBUMIN 2.7, GLOBULIN 5.5. A CHEST XRAY WAS OBTAINED AND REVEALED: The trachea is midline. The cardiac silhouette is mildly prominent, stable. Bilateral pulmonary opacities/infiltrates not appreciably changed. Air bronchogram in the retrocardiac region again seen. The bony thorax is unremarkable. HE IS CURRENTLY RECEIVING: LEVAQUIN 750MG IV DAILY, SOLU-MEDROL 40MG IV Q8H, DUONEBS Q6H, TUSSIONEX 5ML PO Q12H, LOVENOX 40MG SC DAILY, ROBITUSSIN 10ML PO QID, AND HIS HOME MEDICATIONS WERE RESUMED. TODAY, WE WILL ADD TEMOVATE CREAM TO LEFT ARM TWICE A DAY, FOLLOWED BY AQUAPHOR CREAM. OTHERWISE, WE PLAN TO FOLLOW UP WITH AM LABS AND CHEST XRAY AND CONTINUE TO MONITOR. - Past Medical Family Social History Past Med/Fam/Surg Hx: No changes since H&P Allergies: Allergies No Known Drug Allergies Allergy (Verified 01/19/18 23:53) - Review of Systems ROS: No change since H&P - Vital Signs and I&O's Vital Signs: Temperature 98.0 F Pulse Rate [Left Brachial] 106 Pulse Rate 109 Respiratory Rate 20 Blood Pressure [Left Arm] 138/80 Blood Pressure [Right Arm] 149/94 Blood Pressure [Standing] 128/84 Blood Pressure [Sitting] 133/87 Blood Pressure [Lying] 112/84 Blood Pressure 152/67 O2 Sat by Pulse Oximetry 92 Intake and Output: Intake & Output 07/09/20 07/10/20 07/11/20 07/12/20 11:59 11:59 11:59 11:59 Intake Total 100 / 100 1760 / 1760 Output Total 800 / 800 Balance 100 / 100 960 / 960 - Physical Exam Oriented: Normal Eyes: Normal Ear: Normal Nose: Normal Throat: Normal Respiratory: Generalized, Diminished, Wheezes Cardiovascular: Normal : Normal Auscultation: Bowel Sounds: Normal Palpation: Normal Tenderness: Normal Skin: Normal Musculoskeletal: Normal Psychiatric: Normal Mood Description: Calm Affect: Normal Speech Pattern: Clear, Appropriate - Laboratory and Diagnostics Result Diagrams: 07/12/20 05:30 07/12/20 05:30 Labs: Laboratory WBC 14.5 X10^3/uL (3.6-10.0) H 07/12/20 05:30 RBC 4.81 X10^6/uL (4.7-6.0) 07/12/20 05:30 Hgb 14.4 g/dL (13.5-18.0) 07/12/20 05:30 Hct 43.6 % (42.0-54.0) 07/12/20 05:30 MCV 90.6 fL (80.0-100.0) 07/12/20 05:30 MCH 30.0 pg (27.0-34.0) 07/12/20 05:30 MCHC 33.1 g/dL (33.0-35.0) 07/12/20 05:30 RDW 14.2 % (11.6-16.5) 07/12/20 05:30 Plt Count 310 X10^3/uL (150.0-450.0) 07/12/20 05:30 Plt Count Comment Adequate (ADEQUATE) 07/12/20 05:30 MPV 8.0 fL (7.4-11.0) 07/12/20 05:30 Neut % (Auto) 90.3 % (42.0-75.0) H 07/12/20 05:30 Lymph % (Auto) 5.4 % (21.0-51.0) L 07/12/20 05:30 [place] % (Auto) 4.3 % (0.0-13.0) 07/12/20 05:30 Eos % (Auto) 0.0 % (0.9-2.9) L 07/12/20 05:30 Baso % (Auto) 0 % (0.2-1.0) L 07/12/20 05:30 Neut # (Auto) 13.1 x10^3/uL (2.2-4.8) H 07/12/20 05:30 Lymph # (Auto) 0.8 X10^3/uL (1.3-2.9) L 07/12/20 05:30 [place] # (Auto) 0.6 x10^3/uL (0.3-0.8) 07/12/20 05:30 Eos # (Auto) 0.0 x10^3/uL (0.0-0.2) 07/12/20 05:30 Baso # (Auto) 0.0 X10^3/uL (0.0-0.1) 07/12/20 05:30 Absolute Nucleated RBC 0.0 /100WBC 07/12/20 05:30 Total Counted 100 07/12/20 05:30 Neutrophils % (Manual) 87 % (39-76) H 07/12/20 05:30 Lymphocytes % (Manual) 10 % (13-43) L 07/12/20 05:30 Monocytes % (Manual) 3 % (4-9) L 07/12/20 05:30 Plt Morphology Comment Normal (NORMAL) 07/12/20 05:30 RBC Morphology Normal (NORMAL) 07/12/20 05:30 Sample Site Rb 07/11/20 10:45 ABG pH 7.450 (7.35-7.45) 07/11/20 10:45 ABG pCO2 42.0 mmHg (35.0-45.0) 07/11/20 10:45 ABG pO2 105.0 mmHg (80.0-100.0) H 07/11/20 10:45 ABG HCO3 29.2 mmol/L (22-26) H 07/11/20 10:45 ABG O2 Saturation 98.0 % (90-100) 07/11/20 10:45 ABG Base Excess 4.7 mmol/L (-2.0-2.0) H 07/11/20 10:45 [place] Test Na 07/11/20 10:45 A-a Gradient 42.0 mmHg 07/11/20 10:45 FiO2 28.0 07/11/20 10:45 Blood Gas Comments Leland well cb 07/11/20 10:45 Sodium 136 mmol/L (136-145) 07/12/20 05:30 Corrected Sodium 137 mmol/L (136-145) 07/12/20 05:30 Potassium 4.1 mmol/L (3.5-5.1) 07/12/20 05:30 Chloride 99 mmol/L (98-107) 07/12/20 05:30 Carbon Dioxide 25.9 mmol/L (21-32) 07/12/20 05:30 BUN 13 mg/dL (7-18) 07/12/20 05:30 Creatinine 1.17 mg/dL (0.70-1.30) 07/12/20 05:30 Est GFR (MDRD) Af Amer > 60 (>60) 07/12/20 05:30 Est GFR (MDRD) Non-Af > 60 (>60) 07/12/20 05:30 Glucose 142 mg/dL (65-99) H 07/12/20 05:30 Calcium 9.4 mg/dL (8.5-10.1) 07/12/20 05:30 Corrected Calcium 10.4 mg/dL (8.5-10.1) H 07/12/20 05:30 Total Bilirubin 0.50 mg/dL (0.2-1.0) 07/12/20 05:30 AST 20 Units/L (15-37) 07/12/20 05:30 ALT 16 Units/L (12-78) 07/12/20 05:30 Alkaline Phosphatase 77 Units/L (46-116) 07/12/20 05:30 Total Protein 8.2 g/dL (6.4-8.2) 07/12/20 05:30 Albumin 2.7 g/dL (3.4-5.0) L 07/12/20 05:30 Globulin 5.5 g/dL (2.5-4.5) H 07/12/20 05:30 Albumin/Globulin Ratio 0.5 Ratio (1.1-2.1) L 07/12/20 05:30 Influenza Type A Ag Negative-presumptive (NEGATIVE) 07/10/20 19:37 Influenza Type B Ag Negative-presumptive (NEGATIVE) 07/10/20 19:37 SARS-CoV-2 (PCR) Negative (NEGATIVE) 07/11/20 07:54 - Plan (1) Pneumonia Status: Acute Plan: LEVAQUIN 750MG IV DAILY, SOLU-MEDROL 40MG IV Q8H, DUONEBS Q6H, TUSSIONEX 5ML PO Q12H, LOVENOX 40MG SC DAILY, ROBITUSSIN 10ML PO QID, AND HIS HOME MEDICATIONS WERE RESUMED. SUPPLEMENTAL OXYGEN (2) COPD (chronic obstructive pulmonary disease) Status: Chronic Qualifiers: COPD type: unspecified COPD Qualified Code(s): J44.9 - Chronic obstructive pulmonary disease, unspecified
[2020-07-12] MEDS ORDERED: MORPHINE SULFATE INJ 2 MG INJ ONE ×2 (11:55→17:04)
[2020-07-12] MEDS ORDERED: XYLOCAINE 1 % (PLAIN) NEB PRN (21:00)
[2020-07-13] MEDS ORDERED: MORPHINE SULFATE INJ 2 MG INJ ONE ×2 (00:10→05:59)
[2020-07-13] MEDS: MORPHINE SULFATE JET NEB NEB SCH ×4 (00:15→21:15)
[2020-07-13] MEDS: DUONEB 0.5 MG/3 MG (3 mL) NEB SCH (00:15)
[2020-07-13] MEDS: ULTRAM PO SCH ×3 (05:24→21:04)
[2020-07-13] MEDS: TESSALON PERLES PO SCH ×3 (05:24→21:04)
[2020-07-13] MEDS: SOLU-Medrol 40 MG VIAL IVP SCH ×3 (05:24→21:04)
--- NOTE | 2020-07-13 05:51 | RAD ---
HISTORYSOBSTUDYCHEST, 1 [id number]/2020FINDINGSThe trachea is midline. The cardiac silhouette is stable retrocardiac opacity/infiltrates with air bronchogram, similar to prior exam. Interval increase in hazy opacity at the right lung base.. No pneumothorax.. The bony thorax is unremarkable.IMPRESSIONIncrease in right basilar infiltrates/opacities.Electronically signed by: Cherise Oliva (Jul 13, 2020 05:51:26)
[2020-07-13 06:13] LABS: BASOPHILS % (AUTO) 0.1 % (0.2-1.0); HEMATOCRIT 42.7 % (42.0-54.0); LYMPHOCYTES # (AUTO) 0.8 X10^3/uL (1.3-2.9); LYMPHOCYTES % (AUTO) 3.3 % (21.0-51.0); MEAN CORPUSCULAR HEMOGLOBIN 29.4 pg (27.0-34.0); MEAN CORPUSCULAR HGB CONC 32.8 g/dL (33.0-35.0); MEAN CORPUSCULAR VOLUME 89.6 fL (80.0-100.0); MEAN PLATELET VOLUME 8.8 fL (7.4-11.0); MONOCYTES # (AUTO) 1.2 x10^3/uL (0.3-0.8); MONOCYTES % (AUTO) 5.3 % (0.0-13.0); NEUTROPHILS # (AUTO) 21.2 x10^3/uL (2.2-4.8); NEUTROPHILS % (AUTO) 91.3 % (42.0-75.0); PLATELET COUNT 354 X10^3/uL (150.0-450.0); RED BLOOD COUNT 4.77 X10^6/uL (4.7-6.0); RED CELL DISTRIBUTION WIDTH 14.5 % (11.6-16.5); WHITE BLOOD COUNT 23.2 X10^3/uL (3.6-10.0)
[2020-07-13] MEDS: XOPENEX 1.25 MG/3 ML NEBULE NEB SCH ×3 (06:22→17:18)
[2020-07-13 06:27] LABS: ALANINE AMINOTRANSFERASE 28 Units/L (12-78); ALBUMIN 2.7 g/dL (3.4-5.0); ALKALINE PHOSPHATASE 70 Units/L (46-116); ASPARTATE AMINO TRANSFERASE 40 Units/L (15-37); BLOOD UREA NITROGEN 18 mg/dL (7-18); CALCIUM 9.5 mg/dL (8.5-10.1); CARBON DIOXIDE 28.8 mmol/L (21-32); CHLORIDE 99 mmol/L (98-107); COR CA(FOR HYPOALB) 10.5 mg/dL (8.5-10.1); COR NA(FOR HYPERGLY) 138 mmol/L (136-145); CREATININE 1.19 mg/dL (0.70-1.30); SODIUM 137 mmol/L (136-145); eGFR NON BLACK RACES > 60 (>60)
[2020-07-13 06:54] LABS: BAND NEUTROPHILS % 4 % (0-10); PLATELET MORPHOLOGY COMMENT NORMAL (NORMAL)
[2020-07-13] MEDS: LOVENOX INJ 40 MG SYR SC SCH (08:33)
[2020-07-13] MEDS: LEVAQUIN PREMIX IV 750 MG 750 MG/150 ML BAG IV SCH (08:35)
[2020-07-13] MEDS: ROBITUSSIN DM PO SCH ×4 (08:35→20:17)
[2020-07-13] MEDS: HYDROCHLOROTHIAZIDE 12.5 MG CAP PO SCH (08:36)
[2020-07-13] MEDS: DIOVAN TAB 80 MG PO SCH (08:36)
[2020-07-13] MEDS: PROTONIX TAB 40 MG PO SCH (08:36)
[2020-07-13] MEDS: PULMICORT NEB TX 0.5 MG NEB SCH ×2 (08:42→21:15)
[2020-07-13] MEDS: AQUAPHOR TOP SCH ×2 (08:44→21:03)
[2020-07-13] MEDS: TEMOVATE CREAM EXT SCH ×2 (08:44→21:03)
[2020-07-13] MEDS ORDERED: CANDIDA ALBICANS SKIN TEST ID ONE (10:29)
--- NOTE | 2020-07-13 12:14 | PCM.PROG ---
Progress Note - Progress Note for Day of Date of Exam: 07/13/20 - Subjective Subjective: WAS ADMITTED FOR TREATMENT OF PNEUMONIA. TODAY, HE IS ALERT AND OREINTED, LYING IN BED ON MORNING ROUNDS. HE CONTINUES WITH COUGH AND SHORTNESS OF BREATH TODAY. HE REPORTS INCREASE IN SHORTNESS OF BREATH TODAY. HE ALSO REPORTS A SORE THROAT AND COUGHING UP BLOOD. HE CONTINUES TO UTILIZE OXYGEN VIA NASAL CANNULA AT 2L/MIN. HE ALSO REPORTS REDNESS AND ITCHING TO HIS LEFT ARM. HE REPORTS THAT THE REDNESS HAS BEEN THERE FOR MONTHS, BUT THE ITCHING HAS BEEN WORSE THE PAST FEW DAYS. ON EXAMINATION, HE IS TACHYCARDIC WITH HR 110-120. HEART IS REGULAR IN RHYTHM. BILATERAL LUNGS ARE NOTED WITH SCATTERED WHEEZING THROUGHOUT. LEFT ARM IS NOTED WITH ERYTHEMA. ABDOMEN IS ROUND, SOFT, AND NON- TENDER WITH NORMAL BOWEL SOUNDS NOTED IN ALL QUADRANTS. HIS VITALS THIS MORNING ARE: 97.9-112-20-91%NC-131/90. LABS WERE OBTAINED. ABNORMAL LAB VALUES INCLUDE THE FOLLOWING: WBC INCREASED TO 23.2, GLUCOSE 138, AST 40, CRP 112.30, ALBUMIN 2.7, GLOBULIN 5.3. BLOOD CULTURES ARE PENDING. A CHEST XRAY WAS OBTAINED AND REVEALED: Increase in right basilar infiltrates/opacities. HE IS CURRENTLY RECEI VING: LEVAQUIN 750MG IV DAILY, SOLU-MEDROL 40MG IV Q8H, DUONEBS Q6H, TUSSIONEX 5ML PO Q12H, LOVENOX 40MG SC DAILY, ROBITUSSIN 10ML PO QID, TEMOVATE CREAM BID, AND HIS HOME MEDICATIONS WERE RESUMED. TODAY, WE WILL START MAGIC MOUTHWASH QID, DECADRON IN NEB TX QID, OBTAIN A CHEST CT WITH CONTRAST, AND CHECK DENIS, ESR, CRP, BUD, IONIZED CALCIUM, AND AN ANCA PROFILE. OTHERWISE, WE PLAN TO FOLLOW UP WITH AM LABS AND CHEST XRAY AND CONTINUE TO MONITOR. - Past Medical Family Social History Past Med/Fam/Surg Hx: No changes since H&P Allergies: Allergies No Known Drug Allergies Allergy (Verified 01/19/18 23:53) - Review of Systems ROS: No change since H&P - Vital Signs and I&O's Vital Signs: Temperature 97.8 F Pulse Rate [Left Brachial] 114 Pulse Rate 108 Respiratory Rate 20 Blood Pressure [Left Arm] 137/80 Blood Pressure [Right Arm] 149/94 Blood Pressure [Standing] 128/84 Blood Pressure [Sitting] 133/87 Blood Pressure [Lying] 112/84 Blood Pressure 152/67 O2 Sat by Pulse Oximetry 90 Intake and Output: Intake & Output 07/11/20 07/12/20 07/13/20 07/14/20 11:59 11:59 11:59 11:59 Intake Total 100 / 100 1760 / 1760 2850 / 2850 Output Total 800 / 800 Balance 100 / 100 960 / 960 2850 / 2850 - Physical Exam Oriented: Normal Eyes: Normal Ear: Normal Nose: Normal Throat: Normal Respiratory: Generalized, Diminished, Wheezes Cardiovascular: Normal : Normal Auscultation: Bowel Sounds: Normal Palpation: Normal Tenderness: Normal Skin: Normal Musculoskeletal: Normal Psychiatric: Normal Mood Description: Calm Affect: Normal Speech Pattern: Clear, Appropriate - Laboratory and Diagnostics Result Diagrams: 07/13/20 05:20 07/13/20 05:20 Labs: Laboratory WBC 23.2 X10^3/uL (3.6-10.0) H D 07/13/20 05:20 RBC 4.77 X10^6/uL (4.7-6.0) 07/13/20 05:20 Hgb 14.0 g/dL (13.5-18.0) 07/13/20 05:20 Hct 42.7 % (42.0-54.0) 07/13/20 05:20 MCV 89.6 fL (80.0-100.0) 07/13/20 05:20 MCH 29.4 pg (27.0-34.0) 07/13/20 05:20 MCHC 32.8 g/dL (33.0-35.0) L 07/13/20 05:20 RDW 14.5 % (11.6-16.5) 07/13/20 05:20 Plt Count 354 X10^3/uL (150.0-450.0) 07/13/20 05:20 Plt Count Comment Adequate (ADEQUATE) 07/13/20 05:20 MPV 8.8 fL (7.4-11.0) 07/13/20 05:20 Neut % (Auto) 91.3 % (42.0-75.0) H 07/13/20 05:20 Lymph % (Auto) 3.3 % (21.0-51.0) L 07/13/20 05:20 [place] % (Auto) 5.3 % (0.0-13.0) 07/13/20 05:20 Eos % (Auto) 0.0 % (0.9-2.9) L 07/13/20 05:20 Baso % (Auto) 0.1 % (0.2-1.0) L 07/13/20 05:20 Neut # (Auto) 21.2 x10^3/uL (2.2-4.8) H 07/13/20 05:20 Lymph # (Auto) 0.8 X10^3/uL (1.3-2.9) L 07/13/20 05:20 [place] # (Auto) 1.2 x10^3/uL (0.3-0.8) H 07/13/20 05:20 Eos # (Auto) 0.0 x10^3/uL (0.0-0.2) 07/13/20 05:20 Baso # (Auto) 0.0 X10^3/uL (0.0-0.1) 07/13/20 05:20 Absolute Nucleated RBC 0.1 /100WBC 07/13/20 05:20 Total Counted 100 07/13/20 05:20 Neutrophils % (Manual) 88 % (39-76) H 07/13/20 05:20 Band Neutrophils % 4 % (0-10) 07/13/20 05:20 Lymphocytes % (Manual) 5 % (13-43) L 07/13/20 05:20 Monocytes % (Manual) 3 % (4-9) L 07/13/20 05:20 Plt Morphology Comment Normal (NORMAL) 07/13/20 05:20 RBC Morphology Normal (NORMAL) 07/13/20 05:20 Sample Site Rb 07/11/20 10:45 ABG pH 7.450 (7.35-7.45) 07/11/20 10:45 ABG pCO2 42.0 mmHg (35.0-45.0) 07/11/20 10:45 ABG pO2 105.0 mmHg (80.0-100.0) H 07/11/20 10:45 ABG HCO3 29.2 mmol/L (22-26) H 07/11/20 10:45 ABG O2 Saturation 98.0 % (90-100) 07/11/20 10:45 ABG Base Excess 4.7 mmol/L (-2.0-2.0) H 07/11/20 10:45 Castro Test Na 07/11/20 10:45 A-a Gradient 42.0 mmHg 07/11/20 10:45 FiO2 28.0 07/11/20 10:45 Blood Gas Comments Leland well cb 07/11/20 10:45 Sodium 137 mmol/L (136-145) 07/13/20 05:20 Corrected Sodium 138 mmol/L (136-145) 07/13/20 05:20 Potassium 4.0 mmol/L (3.5-5.1) 07/13/20 05:20 Chloride 99 mmol/L (98-107) 07/13/20 05:20 Carbon Dioxide 28.8 mmol/L (21-32) 07/13/20 05:20 BUN 18 mg/dL (7-18) 07/13/20 05:20 Creatinine 1.19 mg/dL (0.70-1.30) 07/13/20 05:20 Est GFR (MDRD) Af Amer > 60 (>60) 07/13/20 05:20 Est GFR (MDRD) Non-Af > 60 (>60) 07/13/20 05:20 Glucose 138 mg/dL (65-99) H 07/13/20 05:20 Calcium 9.5 mg/dL (8.5-10.1) 07/13/20 05:20 Corrected Calcium 10.5 mg/dL (8.5-10.1) H 07/13/20 05:20 Total Bilirubin 0.50 mg/dL (0.2-1.0) 07/13/20 05:20 AST 40 Units/L (15-37) H 07/13/20 05:20 ALT 28 Units/L (12-78) 07/13/20 05:20 Alkaline Phosphatase 70 Units/L (46-116) 07/13/20 05:20 C-Reactive Protein 112.30 mg/L (0-3.0) H 07/13/20 05:20 Total Protein 8.0 g/dL (6.4-8.2) 07/13/20 05:20 Albumin 2.7 g/dL (3.4-5.0) L 07/13/20 05:20 Globulin 5.3 g/dL (2.5-4.5) H 07/13/20 05:20 Albumin/Globulin Ratio 0.5 Ratio (1.1-2.1) L 07/13/20 05:20 Influenza Type A Ag Negative-presumptive (NEGATIVE) 07/10/20 19:37 Influenza Type B Ag Negative-presumptive (NEGATIVE) 07/10/20 19:37 SARS-CoV-2 (PCR) Negative (NEGATIVE) 07/11/20 07:54 - Plan (1) Pneumonia Status: Acute Plan: LEVAQUIN 750MG IV DAILY, SOLU-MEDROL 40MG IV Q8H, DUONEBS Q6H, TUSSIONEX 5ML PO Q12H, LOVENOX 40MG SC DAILY, ROBITUSSIN 10ML PO QID, AND HIS HOME MEDICATIONS WERE RESUMED. SUPPLEMENTAL OXYGEN (2) COPD (chronic obstructive pulmonary disease) Status: Chronic Qualifiers: COPD type: unspecified COPD Qualified Code(s): J44.9 - Chronic obstructive pulmonary disease, unspecified
[2020-07-13] MEDS: MAGIC MOUTHWASH MT SCH ×4 (12:29→20:17)
[2020-07-13] MEDS: TUSSIONEX PENNKINETIC SUSP PO SCH ×2 (12:29→22:04)
--- NOTE | 2020-07-13 13:00 | CT ---
HISTORYpneumoniaSTUDYCHEST WITH CONCOMPARISONChest radiographs performed earlier today also on July 13, 2020TECHNIQUEMultiple axial images of the chest were obtained from the thoracic inlet to the upper abdomen after the administration of IV contrast. 3D reconstructions utilizing axial MIPS imaging was performed and reviewed. Dose reduction techniques including Automated Exposure Control (AEC) and adjustment of mA and kV were utilized.FINDINGSScattered subcentimeter lymph nodes as measured across the short axis are seen within the mediastinum. There is no significant pericardial effusion observed. The thoracic aorta is grossly unremarkable in its contour without evidence for aneurysmal dilatation. Biapical scarring is noted. Areas of ground-glass opacification are noted bilaterally most pronounced within the left lower lobe in keeping with edema and/or infiltrate which may be either bacterial or viral in origin. Recommend clinical correlation and continued close interval follow-up for further evaluation. Surgical clips are seen within the gallbladder fossa. Degenerative changes are seen within the visualized spine.IMPRESSIONBilateral airspace disease as discussed above.Electronically signed by: VILMA DOOLEY (Jul 13, 2020 12:59:42)
[2020-07-13] MEDS: DECADRON JET NEB (RESP USE) NEB SCH ×2 (13:39→17:18)
[2020-07-14] MEDS: DECADRON JET NEB (RESP USE) NEB SCH ×4 (00:29→17:00)
[2020-07-14] MEDS: XOPENEX 1.25 MG/3 ML NEBULE NEB SCH ×4 (00:30→17:00)
[2020-07-14] MEDS: MORPHINE SULFATE JET NEB NEB SCH ×4 (00:30→18:03)
[2020-07-14] MEDS: SOLU-Medrol 40 MG VIAL IVP SCH ×3 (05:14→21:33)
[2020-07-14] MEDS: TESSALON PERLES PO SCH ×3 (05:15→21:44)
[2020-07-14] MEDS: ULTRAM PO SCH ×3 (05:15→21:42)
[2020-07-14 06:28] LABS: ALANINE AMINOTRANSFERASE 59 Units/L (12-78); ALBUMIN 2.6 g/dL (3.4-5.0); ALKALINE PHOSPHATASE 67 Units/L (46-116); ASPARTATE AMINO TRANSFERASE 56 Units/L (15-37); BLOOD UREA NITROGEN 19 mg/dL (7-18); CALCIUM 9.1 mg/dL (8.5-10.1); CARBON DIOXIDE 30.2 mmol/L (21-32); CHLORIDE 100 mmol/L (98-107); COR CA(FOR HYPOALB) 10.2 mg/dL (8.5-10.1); COR NA(FOR HYPERGLY) 140 mmol/L (136-145); CREATININE 1.19 mg/dL (0.70-1.30); SODIUM 139 mmol/L (136-145); TOTAL PROTEIN 7.6 g/dL (6.4-8.2); eGFR NON BLACK RACES > 60 (>60)
--- NOTE | 2020-07-14 06:46 | RAD ---
HISTORYSOBSTUDYPortable AP [id number] size is stable. Persistent asymmetric infiltrates and airspace disease, left greater than right. There is no significant change in this since prior. No definite pneumothorax or large pleural effusion is evident.IMPRESSIONNo change. Persistent asymmetric infiltrates consistent with pneumonia.Electronically signed by: SAVAGE SOLIZ (Jul 14, 2020 06:46:30)
[2020-07-14 06:53] LABS: BASOPHILS % (AUTO) 0.1 % (0.2-1.0); HEMATOCRIT 43.4 % (42.0-54.0); HEMOGLOBIN 14.2 g/dL (13.5-18.0); LYMPHOCYTES # (AUTO) 0.6 X10^3/uL (1.3-2.9); LYMPHOCYTES % (AUTO) 2.8 % (21.0-51.0); MEAN CORPUSCULAR HEMOGLOBIN 29.3 pg (27.0-34.0); MEAN CORPUSCULAR HGB CONC 32.8 g/dL (33.0-35.0); MEAN CORPUSCULAR VOLUME 89.5 fL (80.0-100.0); MEAN PLATELET VOLUME 8.4 fL (7.4-11.0); MONOCYTES # (AUTO) 1.8 x10^3/uL (0.3-0.8); MONOCYTES % (AUTO) 7.9 % (0.0-13.0); NEUTROPHILS # (AUTO) 20.1 x10^3/uL (2.2-4.8); NEUTROPHILS % (AUTO) 89.2 % (42.0-75.0); PLATELET COUNT 381 X10^3/uL (150.0-450.0); RED BLOOD COUNT 4.85 X10^6/uL (4.7-6.0); RED CELL DISTRIBUTION WIDTH 14.4 % (11.6-16.5); WHITE BLOOD COUNT 22.5 X10^3/uL (3.6-10.0)
[2020-07-14 07:33] LABS: PLATELET MORPHOLOGY COMMENT NORMAL (NORMAL)
[2020-07-14] MEDS: PULMICORT NEB TX 0.5 MG NEB SCH ×2 (08:54→20:30)
[2020-07-14] MEDS: AQUAPHOR TOP SCH ×3 (09:12→23:00)
[2020-07-14] MEDS: DIOVAN TAB 80 MG PO SCH (09:43)
[2020-07-14] MEDS: HYDROCHLOROTHIAZIDE 12.5 MG CAP PO SCH (09:43)
[2020-07-14] MEDS: LEVAQUIN PREMIX IV 750 MG 750 MG/150 ML BAG IV SCH (09:43)
[2020-07-14] MEDS: PROTONIX TAB 40 MG PO SCH (09:44)
[2020-07-14] MEDS: LOVENOX INJ 40 MG SYR SC SCH (09:44)
[2020-07-14] MEDS: MAGIC MOUTHWASH MT SCH ×4 (09:44→21:44)
[2020-07-14] MEDS: TEMOVATE CREAM EXT SCH ×3 (09:45→23:00)
[2020-07-14] MEDS: ROBITUSSIN DM PO SCH ×4 (09:45→21:44)
--- NOTE | 2020-07-14 11:31 | PCM.PROG ---
Progress Note Progress Note for Day of Date of Exam: 07/14/20 Subjective Subjective: PT IS A 59 YO M ADMITTED FOR TREATMENT OF PNEUMONIA. THIS MORNING PT STATES HE IS FEELING ABOUT THE SAME YESTERDAY AND CONTINUES TO HAVE COUGH AND SOME SHORTNESS OF BREATH. HE IS REQUIRING SUPPLEMENTAL O2 NC 3L/MIN. ON EXAMINATION, HE IS TACHYCARDIC WITH HR 105. HEART IS REGULAR IN RHYTHM. BILATERAL LUNGS ARE NOTED WITH SCATTERED WHEEZING THROUGHOUT. ABDOMEN IS ROUND, SOFT, AND NON-TENDER WITH NORMAL BOWEL SOUNDS NOTED IN ALL QUADRANTS. LABS/IMAGING: WBC 23.2>22.5, HGB 14.2, PLT 381, ESR 50, CRP 112, NA 139, K 3.4, CR 1.19, GLUC 137, DENIS/ANCA PENDING, COVID19 NEGATIVE, BLOOD CULTURES NGTD. A CHEST XRAY WAS OBTAINED AND REVEALED: NO CHANGE FROM PRIOR. CT CHEST YESTERDAY SHOWED BILATERAL AIRSPACE DISEASE, Areas of ground-glass opacification are noted bilaterally most pronounced within the left lower lobe in keeping with edema and/or infiltrate which may be either bacterial or viral in origin. TREATMENT COURSE INCLUDES: LEVAQUIN 750MG IV DAILY, SOLU-MEDROL 40MG IV Q8H, DUONEBS Q6H, TUSSIONEX 5ML PO Q12H, LOVENOX 40MG SC DAILY, ROBITUSSIN 10ML PO QID, TEMOVATE CREAM BID, MAGIC MOUTHWASH QID, DECADRON IN NEB [place] QID. WILL CONTINUE TREATMENT, MONITOR, AND FOLLOW UP LABS/IMAGING IN THE MORNING. Past Medical Family Social History Past Med/Fam/Surg Hx: No changes since H&P Allergies: Allergies No Known Drug Allergies Allergy (Verified 01/19/18 23:53) Review of Systems ROS: No change since H&P Vital Signs and I&O's Vital Signs: Temperature 98.5 F Pulse Rate [Left Brachial] 100 Pulse Rate 105 Respiratory Rate 20 Blood Pressure [Left Arm] 133/83 Blood Pressure [Right Arm] 127/65 Blood Pressure [Standing] 128/84 Blood Pressure [Sitting] 133/87 Blood Pressure [Lying] 112/84 Blood Pressure 152/67 O2 Sat by Pulse Oximetry 92 Intake and Output: Intake & Output 07/11/20 07/12/20 07/13/20 07/14/20 23:59 23:59 23:59 23:59 Intake Total 1560 / 1560 2650 / 2650 2710 / 2710 380 / 380 Output Total 800 / 800 Balance 760 / 760 2650 / 2650 2710 / 2710 380 / 380 Physical Exam Oriented: Normal Eyes: Normal Ear: Normal Nose: Normal Throat: Normal Respiratory: Generalized, Diminished and Wheezes Cardiovascular: Normal : Normal Auscultation: Bowel Sounds: Normal Tenderness: Normal Skin: Normal Musculoskeletal: Normal Psychiatric: Normal Mood Description: Calm Affect: Normal Speech Pattern: Clear and Appropriate Laboratory and Diagnostics Result Diagrams: 07/14/20 05:10 07/14/20 05:10 Labs: 07/12/20 12:03 Blood Blood Culture - Preliminary 07/12/20 11:57 Blood Blood Culture - Preliminary Laboratory WBC 22.5 X10^3/uL (3.6-10.0) H 07/14/20 05:10 RBC 4.85 X10^6/uL (4.7-6.0) 07/14/20 05:10 Hgb 14.2 g/dL (13.5-18.0) 07/14/20 05:10 Hct 43.4 % (42.0-54.0) 07/14/20 05:10 MCV 89.5 fL (80.0-100.0) 07/14/20 05:10 MCH 29.3 pg (27.0-34.0) 07/14/20 05:10 MCHC 32.8 g/dL (33.0-35.0) L 07/14/20 05:10 RDW 14.4 % (11.6-16.5) 07/14/20 05:10 Plt Count 381 X10^3/uL (150.0-450.0) 07/14/20 05:10 Plt Count Comment Adequate (ADEQUATE) 07/14/20 05:10 MPV 8.4 fL (7.4-11.0) 07/14/20 05:10 Neut % (Auto) 89.2 % (42.0-75.0) H 07/14/20 05:10 Lymph % (Auto) 2.8 % (21.0-51.0) L 07/14/20 05:10 [place] % (Auto) 7.9 % (0.0-13.0) 07/14/20 05:10 Eos % (Auto) 0.0 % (0.9-2.9) L 07/14/20 05:10 Baso % (Auto) 0.1 % (0.2-1.0) L 07/14/20 05:10 Neut # (Auto) 20.1 x10^3/uL (2.2-4.8) H 07/14/20 05:10 Lymph # (Auto) 0.6 X10^3/uL (1.3-2.9) L 07/14/20 05:10 [place] # (Auto) 1.8 x10^3/uL (0.3-0.8) H 07/14/20 05:10 Eos # (Auto) 0.0 x10^3/uL (0.0-0.2) 07/14/20 05:10 Baso # (Auto) 0.0 X10^3/uL (0.0-0.1) 07/14/20 05:10 Absolute Nucleated RBC 0.0 /100WBC 07/14/20 05:10 Total Counted 100 07/14/20 05:10 Neutrophils % (Manual) 92 % (39-76) H 07/14/20 05:10 Band Neutrophils % 4 % (0-10) 07/13/20 05:20 Lymphocytes % (Manual) 2 % (13-43) L 07/14/20 05:10 Monocytes % (Manual) 6 % (4-9) 07/14/20 05:10 Plt Morphology Comment Normal (NORMAL) 07/14/20 05:10 RBC Morphology Normal (NORMAL) 07/14/20 05:10 ESR 50 MM/HOUR (0-15) H 07/13/20 11:04 Sample Site Rb 07/11/20 10:45 ABG pH 7.450 (7.35-7.45) 07/11/20 10:45 ABG pCO2 42.0 mmHg (35.0-45.0) 07/11/20 10:45 ABG pO2 105.0 mmHg (80.0-100.0) H 07/11/20 10:45 ABG HCO3 29.2 mmol/L (22-26) H 07/11/20 10:45 ABG O2 Saturation 98.0 % (90-100) 07/11/20 10:45 ABG Base Excess 4.7 mmol/L (-2.0-2.0) H 07/11/20 10:45 Castro Test Na 07/11/20 10:45 A-a Gradient 42.0 mmHg 07/11/20 10:45 FiO2 28.0 07/11/20 10:45 Blood Gas Comments Leland well cb 07/11/20 10:45 Sodium 139 mmol/L (136-145) 07/14/20 05:10 Corrected Sodium 140 mmol/L (136-145) 07/14/20 05:10 Potassium 3.4 mmol/L (3.5-5.1) L 07/14/20 05:10 Chloride 100 mmol/L (98-107) 07/14/20 05:10 Carbon Dioxide 30.2 mmol/L (21-32) 07/14/20 05:10 BUN 19 mg/dL (7-18) H 07/14/20 05:10 Creatinine 1.19 mg/dL (0.70-1.30) 07/14/20 05:10 Est GFR (MDRD) Af Amer > 60 (>60) 07/14/20 05:10 Est GFR (MDRD) Non-Af > 60 (>60) 07/14/20 05:10 Glucose 137 mg/dL (65-99) H 07/14/20 05:10 Calcium 9.1 mg/dL (8.5-10.1) 07/14/20 05:10 Corrected Calcium 10.2 mg/dL (8.5-10.1) H 07/14/20 05:10 Total Bilirubin 0.50 mg/dL (0.2-1.0) 07/14/20 05:10 AST 56 Units/L (15-37) H 07/14/20 05:10 ALT 59 Units/L (12-78) 07/14/20 05:10 Alkaline Phosphatase 67 Units/L (46-116) 07/14/20 05:10 C-Reactive Protein 112.30 mg/L (0-3.0) H 07/13/20 05:20 Total Protein 7.6 g/dL (6.4-8.2) 07/14/20 05:10 Albumin 2.6 g/dL (3.4-5.0) L 07/14/20 05:10 Globulin 5.0 g/dL (2.5-4.5) H 07/14/20 05:10 Albumin/Globulin Ratio 0.5 Ratio (1.1-2.1) L 07/14/20 05:10 Influenza Type A Ag Negative-presumptive (NEGATIVE) 07/10/20 19:37 Influenza Type B Ag Negative-presumptive (NEGATIVE) 07/10/20 19:37 SARS-CoV-2 (PCR) Negative (NEGATIVE) 07/11/20 07:54 Plan (1) Pneumonia: Status: Acute Plan: LEVAQUIN 750MG IV DAILY, SOLU-MEDROL 40MG IV Q8H, DUONEBS Q6H, TUSSIONEX 5ML PO Q12H, LOVENOX 40MG SC DAILY, ROBITUSSIN 10ML PO QID, AND HIS HOME MEDICATIONS WERE RESUMED. SUPPLEMENTAL OXYGEN (2) COPD (chronic obstructive pulmonary disease): Status: Chronic Qualifiers: COPD type: unspecified COPD Qualified Code(s): J44.9 - Chronic obstructive pulmonary disease, unspecified
[2020-07-14] MEDS: TUSSIONEX PENNKINETIC SUSP PO SCH ×2 (12:00→22:26)
[2020-07-14] MEDS ORDERED: MICRO K EXTEN CAP 10 MEQ PO PRN (14:55)
[2020-07-14] MEDS ORDERED: POTASSIUM CHLORIDE LIQ 20 MEQ UDC PO PRN (14:55)
[2020-07-14] MEDS ORDERED: K-RIDER 10 MEQ/NS 100 ML 10 MEQ/100 ML BAG IV PRN (14:55)
[2020-07-14] MEDS ORDERED: MAGNESIUM SULFATE 1 GRAM/100 mL PREMIX 1 GM/100 ML BAG IV PRN (14:55)
[2020-07-14] MEDS ORDERED: KLOR-CON PO PRN (14:55)
[2020-07-14] MEDS ORDERED: POTASSIUM CHL 40 MEQ/NS 0.45% 500 ML IV PRN (14:55)
[2020-07-14] MEDS ORDERED: POTASSIUM CHL 60 MEQ/NS 0.45% 500 ML IV PRN (14:55)
[2020-07-14] MEDS ORDERED: K-DUR TAB 20 MEQ PO PRN (14:55)
[2020-07-14 21:10] LABS: ABG ALLEN TEST POS; ABG HCO3 35.1 mmol/L (22-26)
[2020-07-15] MEDS: XOPENEX 1.25 MG/3 ML NEBULE NEB SCH ×2 (00:35→05:30)
[2020-07-15] MEDS: DECADRON JET NEB (RESP USE) NEB SCH ×2 (00:35→05:30)
[2020-07-15] MEDS: MORPHINE SULFATE JET NEB NEB SCH ×4 (00:59→19:00)
[2020-07-15] MEDS: SOLU-Medrol 40 MG VIAL IVP SCH ×3 (05:15→21:27)
[2020-07-15 05:27] LABS: ABG ALLEN TEST POS; ABG BASE EXCESS 13.2 mmol/L (-2.0-2.0); ABG HCO3 38.2 mmol/L (22-26)
[2020-07-15] MEDS: TESSALON PERLES PO SCH ×3 (06:28→21:27)
[2020-07-15] MEDS: ULTRAM PO SCH ×3 (06:29→21:27)
--- NOTE | 2020-07-15 06:36 | RAD ---
HISTORYSOBSTUDYCHEST, 1 VIEWCOMPARISONOctober 2019TECHNIQUEPortable chest x-rayFINDINGSThere is mild progression of the overall appearance of the multifocal bilateral interstitial and consolidative pulmonary opacities consistent with pneumonia. More dense consolidation is now observed within the right lung base. Heart size is unchanged. There is no free air or pneumothorax.IMPRESSIONMultifocal bilateral pulmonary infiltrates consistent with pneumonia.Electronically signed by: DELMER DIETRICH (Jul 15, 2020 06:35:54)
[2020-07-15 06:50] LABS: BASOPHILS % (AUTO) 0.1 % (0.2-1.0); HEMATOCRIT 46.1 % (42.0-54.0); LYMPHOCYTES # (AUTO) 0.6 X10^3/uL (1.3-2.9); LYMPHOCYTES % (AUTO) 2.7 % (21.0-51.0); MEAN CORPUSCULAR HEMOGLOBIN 29.2 pg (27.0-34.0); MEAN CORPUSCULAR HGB CONC 32.6 g/dL (33.0-35.0); MEAN CORPUSCULAR VOLUME 89.6 fL (80.0-100.0); MONOCYTES # (AUTO) 2.3 x10^3/uL (0.3-0.8); MONOCYTES % (AUTO) 9.5 % (0.0-13.0); NEUTROPHILS # (AUTO) 20.9 x10^3/uL (2.2-4.8); NEUTROPHILS % (AUTO) 87.7 % (42.0-75.0); PLATELET COUNT 434 X10^3/uL (150.0-450.0); RED BLOOD COUNT 5.14 X10^6/uL (4.7-6.0); RED CELL DISTRIBUTION WIDTH 14.3 % (11.6-16.5); WHITE BLOOD COUNT 23.8 X10^3/uL (3.6-10.0)
[2020-07-15 06:56] LABS: ALANINE AMINOTRANSFERASE 87 Units/L (12-78); ALBUMIN 2.6 g/dL (3.4-5.0); ALKALINE PHOSPHATASE 74 Units/L (46-116); ASPARTATE AMINO TRANSFERASE 58 Units/L (15-37); BLOOD UREA NITROGEN 20 mg/dL (7-18); CALCIUM 9.3 mg/dL (8.5-10.1); CARBON DIOXIDE 30.5 mmol/L (21-32); CHLORIDE 100 mmol/L (98-107); COR NA(FOR HYPERGLY) 142 mmol/L (136-145); CREATININE 1.34 mg/dL (0.70-1.30); SODIUM 141 mmol/L (136-145); TOTAL PROTEIN 7.8 g/dL (6.4-8.2); eGFR NON BLACK RACES 58 (>60)
[2020-07-15 06:57] LABS: COR CA(FOR HYPOALB) 10.4 mg/dL (8.5-10.1)
[2020-07-15 08:35] LABS: BAND NEUTROPHILS % 2 % (0-10); PLATELET MORPHOLOGY COMMENT NORMAL (NORMAL)
[2020-07-15] MEDS: DIOVAN TAB 80 MG PO SCH (08:39)
[2020-07-15] MEDS: PROTONIX TAB 40 MG PO SCH (08:40)
[2020-07-15] MEDS: ROBITUSSIN DM PO SCH ×4 (08:41→20:07)
[2020-07-15] MEDS: LOVENOX INJ 40 MG SYR SC SCH (08:42)
[2020-07-15] MEDS: HYDROCHLOROTHIAZIDE 12.5 MG CAP PO SCH (08:47)
[2020-07-15] MEDS: LEVAQUIN PREMIX IV 750 MG 750 MG/150 ML BAG IV SCH (08:48)
[2020-07-15] MEDS: AQUAPHOR TOP SCH ×2 (08:51→21:26)
[2020-07-15] MEDS: TEMOVATE CREAM EXT SCH ×2 (08:52→21:26)
[2020-07-15] MEDS: MAGIC MOUTHWASH MT SCH ×5 (08:59→21:26)
[2020-07-15] MEDS: PULMICORT NEB TX 0.5 MG NEB SCH ×2 (09:20→21:20)
[2020-07-15] MEDS ORDERED: NS 250 ML IV 250 ML IV ONE (10:55)
--- NOTE | 2020-07-15 10:55 | PCM.PROG ---
Progress Note Progress Note for Day of Date of Exam: 07/15/20 Subjective Subjective: PT IS A 59 YO M ADMITTED FOR TREATMENT OF PNEUMONIA. OVERNIGHT PATIENT'S RESPIRATORY STATUS RAPIDLY DETERIORATED FROM NEEDING 3L NC TO NOW BEING ON HEATED HIGH FLOW, PT IN ACUTE RESPIRATORY FAILURE. HE CONTINUES TO HAVE COUGH AND SHORTNESS OF BREATH. ON EXAMINATION, HE IS TACHYCARDIC WITH HR 100. HEART IS REGULAR IN RHYTHM. BILATERAL LUNGS ARE NOTED WITH SCATTERED WHEEZING AND RALES THROUGHOUT. ABDOMEN IS ROUND, SOFT, AND NON-TENDER WITH NORMAL BOWEL SOUNDS NOTED IN ALL QUADRANTS. LABS/IMAGING: WBC 22.5>23.8, HGB 15, PLT 434, NA 141, K 3.6, CR 1.34, GLUC 136, AB.5/49/78/38/96% ON FIO2 100%. DENIS/ANCA PENDING, COVID19 NEGATIVE, BLOOD CULTURES NGTD. A CHEST XRAY WAS OBTAINED AND REVEALED: Multifocal bilateral pulmonary infiltrates consistent with pneumonia. TREATMENT COURSE INCLUDES: LEVAQUIN 750MG IV DAILY, SOLU-MEDROL 40MG IV Q8H, DUONEBS Q6H, TUSSIONEX 5ML PO Q12H, LOVENOX 40MG SC DAILY, ROBITUSSIN 10ML PO QID, TEMOVATE CREAM BID, MAGIC MOUTHWASH QID, DECADRON IN NEB [place] QID. WILL D/C LEVAQUIN AND CHANGE TO VANCOMYCIN AND ZOSYN FOR EMPIRIC CONVERAGE. RAPID COVID19 SCREENING PERFORMED AGAIN THIS MORNING AND WAS NEGATIVE. WILL CONTINUE AGRESSIVE PULMONARY TREATMENT, MONITOR, AND FOLLOW UP LABS/IMAGING IN THE MORNING. Critical care time spent 30-74 minutes in clinical assessment, reviewing labs/imaging, decision making, and documentation. Past Medical Family Social History Past Med/Fam/Surg Hx: No changes since H&P Allergies: Allergies No Known Drug Allergies Allergy (Verified 01/19/18 23:53) Review of Systems ROS: No change since H&P Vital Signs and I&O's Vital Signs: Temperature 97.6 F Pulse Rate [Left Brachial] 100 Pulse Rate 105 Respiratory Rate 20 Blood Pressure [Left Arm] 148/96 Blood Pressure [Right Arm] 139/94 Blood Pressure [Standing] 128/84 Blood Pressure [Sitting] 133/87 Blood Pressure [Lying] 112/84 Blood Pressure 152/67 O2 Sat by Pulse Oximetry 96 Intake and Output: Intake & Output 07/12/20 07/13/20 07/14/20 07/15/20 23:59 23:59 23:59 23:59 Intake Total 2650 / 2650 2710 / 2710 7 / 1736 Output Total 500 / 500 Balance 2650 / 2650 2710 / 2710 1737 / 1737 -470 / -470 Physical Exam Oriented: Normal Eyes: Normal Ear: Normal Nose: Normal Throat: Normal Respiratory: Generalized, Diminished and Wheezes Cardiovascular: Normal : Normal Auscultation: Bowel Sounds: Normal Tenderness: Normal Skin: Normal Musculoskeletal: Normal Psychiatric: Normal Mood Description: Calm Affect: Normal Speech Pattern: Clear and Appropriate Laboratory and Diagnostics Result Diagrams: 07/15/20 05:30 07/15/20 05:30 Labs: 07/12/20 12:03 Blood Blood Culture - Preliminary 07/12/20 11:57 Blood Blood Culture - Preliminary Laboratory WBC 23.8 X10^3/uL (3.6-10.0) H 07/15/20 05:30 RBC 5.14 X10^6/uL (4.7-6.0) 07/15/20 05:30 Hgb 15.0 g/dL (13.5-18.0) 07/15/20 05:30 Hct 46.1 % (42.0-54.0) 07/15/20 05:30 MCV 89.6 fL (80.0-100.0) 07/15/20 05:30 MCH 29.2 pg (27.0-34.0) 07/15/20 05:30 MCHC 32.6 g/dL (33.0-35.0) L 07/15/20 05:30 RDW 14.3 % (11.6-16.5) 07/15/20 05:30 Plt Count 434 X10^3/uL (150.0-450.0) 07/15/20 05:30 Plt Count Comment Adequate (ADEQUATE) 07/15/20 05:30 MPV 9.0 fL (7.4-11.0) 07/15/20 05:30 Neut % (Auto) 87.7 % (42.0-75.0) H 07/15/20 05:30 Lymph % (Auto) 2.7 % (21.0-51.0) L 07/15/20 05:30 [place] % (Auto) 9.5 % (0.0-13.0) 07/15/20 05:30 Eos % (Auto) 0.0 % (0.9-2.9) L 07/15/20 05:30 Baso % (Auto) 0.1 % (0.2-1.0) L 07/15/20 05:30 Neut # (Auto) 20.9 x10^3/uL (2.2-4.8) H 07/15/20 05:30 Lymph # (Auto) 0.6 X10^3/uL (1.3-2.9) L 07/15/20 05:30 [place] # (Auto) 2.3 x10^3/uL (0.3-0.8) H 07/15/20 05:30 Eos # (Auto) 0.0 x10^3/uL (0.0-0.2) 07/15/20 05:30 Baso # (Auto) 0.0 X10^3/uL (0.0-0.1) 07/15/20 05:30 Absolute Nucleated RBC 0.1 /100WBC 07/15/20 05:30 Total Counted 100 07/15/20 05:30 Neutrophils % (Manual) 86 % (39-76) H 07/15/20 05:30 Band Neutrophils % 2 % (0-10) 07/15/20 05:30 Lymphocytes % (Manual) 6 % (13-43) L 07/15/20 05:30 Monocytes % (Manual) 6 % (4-9) 07/15/20 05:30 Plt Morphology Comment Normal (NORMAL) 07/15/20 05:30 RBC Morphology Normal (NORMAL) 07/15/20 05:30 ESR 50 MM/HOUR (0-15) H 07/13/20 11:04 Sample Site Lr 07/15/20 05:20 ABG pH 7.500 (7.35-7.45) H 07/15/20 05:20 ABG pCO2 49.0 mmHg (35.0-45.0) H 07/15/20 05:20 ABG pO2 78.0 mmHg (80.0-100.0) L 07/15/20 05:20 ABG HCO3 38.2 mmol/L (22-26) H* 07/15/20 05:20 ABG O2 Saturation 96.0 % (90-100) 07/15/20 05:20 ABG Base Excess 13.2 mmol/L (-2.0-2.0) H 07/15/20 05:20 Castro Test Pos 07/15/20 05:20 A-a Gradient 574.0 mmHg 07/15/20 05:20 FiO2 100.0 07/15/20 05:20 Blood Gas Comments Pt dianelys well. cdn 07/15/20 05:20 Sodium 141 mmol/L (136-145) 07/15/20 05:30 Corrected Sodium 142 mmol/L (136-145) 07/15/20 05:30 Potassium 3.6 mmol/L (3.5-5.1) 07/15/20 05:30 Chloride 100 mmol/L (98-107) 07/15/20 05:30 Carbon Dioxide 30.5 mmol/L (21-32) 07/15/20 05:30 BUN 20 mg/dL (7-18) H 07/15/20 05:30 Creatinine 1.34 mg/dL (0.70-1.30) H 07/15/20 05:30 Est GFR (MDRD) Af Amer > 60 (>60) 07/15/20 05:30 Est GFR (MDRD) Non-Af 58 (>60) L 07/15/20 05:30 Glucose 136 mg/dL (65-99) H 07/15/20 05:30 Calcium 9.3 mg/dL (8.5-10.1) 07/15/20 05:30 Corrected Calcium 10.4 mg/dL (8.5-10.1) H 07/15/20 05:30 Magnesium 2.0 mg/dL (1.7-2.9) 07/14/20 05:10 Ferritin 291 ng/mL (26-388) 07/15/20 05:30 Total Bilirubin 0.60 mg/dL (0.2-1.0) 07/15/20 05:30 AST 58 Units/L (15-37) H 07/15/20 05:30 ALT 87 Units/L (12-78) H 07/15/20 05:30 Alkaline Phosphatase 74 Units/L (46-116) 07/15/20 05:30 C-Reactive Protein 112.30 mg/L (0-3.0) H 07/13/20 05:20 Total Protein 7.8 g/dL (6.4-8.2) 07/15/20 05:30 Albumin 2.6 g/dL (3.4-5.0) L 07/15/20 05:30 Globulin 5.2 g/dL (2.5-4.5) H 07/15/20 05:30 Albumin/Globulin Ratio 0.5 Ratio (1.1-2.1) L 07/15/20 05:30 Influenza Type A Ag Negative-presumptive (NEGATIVE) 07/10/20 19:37 Influenza Type B Ag Negative-presumptive (NEGATIVE) 07/10/20 19:37 SARS-CoV-2 (PCR) Negative (NEGATIVE) 07/15/20 09:20 Plan (1) Pneumonia: Status: Acute Plan: LEVAQUIN 750MG IV DAILY, SOLU-MEDROL 40MG IV Q8H, DUONEBS Q6H, TUSSIONEX 5ML PO Q12H, LOVENOX 40MG SC DAILY, ROBITUSSIN 10ML PO QID, AND HIS HOME MEDICATIONS WERE RESUMED. SUPPLEMENTAL OXYGEN (2) COPD (chronic obstructive pulmonary disease): Status: Chronic Qualifiers: COPD type: unspecified COPD Qualified Code(s): J44.9 - Chronic obstructive pulmonary disease, unspecified
[2020-07-15] MEDS ORDERED: PHARMACY CONSULT - VANCOMYCIN XX SCH (11:00)
[2020-07-15] MEDS: ZOSYN VIAL 3.375 GRAMS 3.375 G in NS 100 ML IV + SPIKE MINIBAG* 100 ML IV SCH ×3 (11:09→21:27)
[2020-07-15] MEDS: VANCOMYCIN HCL 1 G in D5W 250 ML IV 250 ML IV SCH ×2 (11:30→20:08)
[2020-07-15] MEDS: TUSSIONEX PENNKINETIC SUSP PO SCH ×2 (11:30→19:06)
[2020-07-15] MEDS: DUONEB 0.5 MG/3 MG (3 mL) NEB SCH ×3 (13:50→21:20)
[2020-07-16] MEDS: MORPHINE SULFATE JET NEB NEB SCH ×4 (01:30→19:00)
[2020-07-16] MEDS: DUONEB 0.5 MG/3 MG (3 mL) NEB SCH ×6 (01:30→21:00)
[2020-07-16] MEDS: TUSSIONEX PENNKINETIC SUSP PO SCH ×3 (02:15→19:00)
[2020-07-16 02:19] LABS: BILIRUBIN,URINE NEGATIVE (NEGATIVE); BLOOD/HEMOGLOBIN,URINE 1+ (NEGATIVE); GLUCOSE, URINE NEGATIVE (NEGATIVE); KETONES,URINE NEGATIVE (NEGATIVE); LEUKOCYTE ESTERASE ,URINE NEGATIVE (NEGATIVE); NITRITES,URINE NEGATIVE (NEGATIVE); PROTEIN,URINE 1+ (NEGATIVE); UROBILINOGEN,URINE NORMAL (NORMAL)
[2020-07-16 02:28] LABS: APPEARANCE,URINE CLEAR (CLEAR); COLOR,URINE YELLOW (YELLOW)
[2020-07-16 02:29] LABS: BACTERIA,URINE TRACE /HPF (NEGATIVE); HYALINE CASTS, URINE FEW /LPF (NEGATIVE); RBC,URINE 0-2 /HPF (0-3); SQUAMOUS EPITHELIAL CELL,UR NEGATIVE /HPF (NEGATIVE)
[2020-07-16] MEDS: SOLU-Medrol 40 MG VIAL IVP SCH ×3 (05:08→21:00)
[2020-07-16] MEDS: TESSALON PERLES PO SCH ×3 (05:09→21:00)
[2020-07-16] MEDS: ULTRAM PO SCH ×3 (05:09→22:00)
[2020-07-16] MEDS: ZOSYN VIAL 3.375 GRAMS 3.375 G in NS 100 ML IV + SPIKE MINIBAG* 100 ML IV SCH ×3 (05:10→22:33)
[2020-07-16 05:18] LABS: BASOPHILS # (AUTO) 0.1 X10^3/uL (0.0-0.1); BASOPHILS % (AUTO) 0.3 % (0.2-1.0); EOSINOPHILS % (AUTO) 0.1 % (0.9-2.9); LYMPHOCYTES # (AUTO) 0.6 X10^3/uL (1.3-2.9); MEAN CORPUSCULAR HEMOGLOBIN 29.9 pg (27.0-34.0); MEAN CORPUSCULAR HGB CONC 33.2 g/dL (33.0-35.0); MEAN CORPUSCULAR VOLUME 89.9 fL (80.0-100.0); MEAN PLATELET VOLUME 8.9 fL (7.4-11.0); MONOCYTES # (AUTO) 2.5 x10^3/uL (0.3-0.8); MONOCYTES % (AUTO) 8.5 % (0.0-13.0); NEUTROPHILS # (AUTO) 26.4 x10^3/uL (2.2-4.8); NEUTROPHILS % (AUTO) 89.1 % (42.0-75.0); PLATELET COUNT 421 X10^3/uL (150.0-450.0); RED BLOOD COUNT 5.01 X10^6/uL (4.7-6.0); WHITE BLOOD COUNT 29.6 X10^3/uL (3.6-10.0)
[2020-07-16 05:25] LABS: ALANINE AMINOTRANSFERASE 85 Units/L (12-78); ALBUMIN 2.5 g/dL (3.4-5.0); ALKALINE PHOSPHATASE 74 Units/L (46-116); ASPARTATE AMINO TRANSFERASE 44 Units/L (15-37); BLOOD UREA NITROGEN 21 mg/dL (7-18); CALCIUM 8.8 mg/dL (8.5-10.1); CARBON DIOXIDE 33.8 mmol/L (21-32); CHLORIDE 100 mmol/L (98-107); COR NA(FOR HYPERGLY) 140 mmol/L (136-145); CREATININE 1.25 mg/dL (0.70-1.30); SODIUM 139 mmol/L (136-145); TOTAL PROTEIN 7.5 g/dL (6.4-8.2); eGFR NON BLACK RACES > 60 (>60)
[2020-07-16 05:43] LABS: ABG BASE EXCESS 11.9 mmol/L (-2.0-2.0)
[2020-07-16 05:44] LABS: PLATELET MORPHOLOGY COMMENT NORMAL (NORMAL)
[2020-07-16 05:44] LABS: ABG HCO3 36.7 mmol/L (22-26)
[2020-07-16 05:45] LABS: ABG ALLEN TEST POS
--- NOTE | 2020-07-16 06:03 | RAD ---
HISTORYSOBSTUDYCHEST, 1 VIEWCOMPARISONOne day priorTECHNIQUEAP view of the chestFINDINGSCardiac and mediastinal contours are stable. No significant change in multifocal infiltrates. No pleural effusion or pneumothorax.IMPRESSIONNo significant change.Electronically signed by: Gilles Otto (Jul 16, 2020 06:03:03)
[2020-07-16 06:43] LABS: ANTI-NUCLEAR ANTIBODY TEST None Detected (None Detected)
[2020-07-16] MEDS: DIOVAN TAB 80 MG PO SCH (08:51)
[2020-07-16] MEDS: AQUAPHOR TOP SCH ×2 (08:51→22:29)
[2020-07-16] MEDS: HYDROCHLOROTHIAZIDE 12.5 MG CAP PO SCH (08:53)
[2020-07-16] MEDS: LOVENOX INJ 40 MG SYR SC SCH (08:53)
[2020-07-16] MEDS: MAGIC MOUTHWASH MT SCH ×4 (08:55→21:00)
[2020-07-16] MEDS: ROBITUSSIN DM PO SCH ×4 (08:55→21:00)
[2020-07-16] MEDS: PROTONIX TAB 40 MG PO SCH (08:55)
[2020-07-16] MEDS: PULMICORT NEB TX 0.5 MG NEB SCH ×2 (08:55→21:00)
[2020-07-16] MEDS: TEMOVATE CREAM EXT SCH ×2 (08:56→22:31)
[2020-07-16] MEDS: VANCOMYCIN HCL 1 G in D5W 250 ML IV 250 ML IV SCH (08:56)
[2020-07-16] MEDS ORDERED: SOLU-Medrol 40 MG VIAL IVP ONE (09:42)
[2020-07-16] MEDS ORDERED: SOLU-Medrol 40 MG VIAL ONE (10:45)
--- NOTE | 2020-07-16 12:30 | PCM.PROG ---
Progress Note - Progress Note for Day of Date of Exam: 07/16/20 - Subjective Subjective: WAS ADMITTED FOR TREATMENT OF PNEUMONIA. HE WAS TRANSFERRED TO THE INTENSIVE CARE UNIT OVER THE WEEKEND DUE TO INCREASED RESPIRATORY DISTRESS AND DECREASED OXYGEN SATURATIONS. TODAY, HE IS ALERT AND OREINTED, LYING IN BED ON MORNING ROUNDS. HE CONTINUES WITH COUGH AND SHORTNESS OF BREATH TODAY. HE APPEARS TO BE IN MILD RESPIRATORY DISTRESS. HE IS CURRENTLY UTILIZING HEATED HIGH FLOW OXYGEN. HE USED THE BIPAP THROUGHOUT THE NIGHT AND DOES REPORT MILD IMPROVEMENT COMPARED TO YESTERDAY. ON EXAMINATION, HE IS TACHYCARDIC WITH HR 110-120. HEART IS REGULAR IN RHYTHM. BILATERAL LUNGS ARE NOTED WITH SCATTERED WHEEZING THROUGHOUT. ABDOMEN IS ROUND, SOFT, AND NON-TENDER WITH NORMAL BOWEL SOUNDS NOTED IN ALL QUADRANTS. HIS VITALS THIS MORNING ARE: 98.0-120-12-90%HHF-130/89. LABS WERE OBTAINED. ABNORMAL LAB VALUES INCLUDE THE FOLLOWING: WBC 29.6, CARBON DIOXIDE 33.8, BUN 21, GLUCOSE 155, AST 44, ALT 85, CRP 51.50, ALBUMIN 2.5, GLOBULIN 5.0. PPD NEGATIE. BLOOD AND SPUTUM CULTURES ARE PENDING. A CHEST XRAY WAS OBTAINED AND REVEALED: Cardiac and mediastinal contours are stable. No significant change in multifocal infiltrates. No pleural effusion or pneumothorax. HE IS CURRENTLY RECEIVING: VANCOMYCIN IV, ZOSYN IV, SOLU-MEDROL 40MG IV Q8H, DUONEBS Q4H, TUSSIONEX 5ML PO Q8H, LOVENOX 40MG SC DAILY, ROBITUSSIN 10ML PO QID, MAGIC MOUTHWASH QID, DECADRON IN NEB [place] QID, MORPHINE IN JET NEB Q6H, TEMOVATE CREAM BID, THE POTASSIUM AND MAGNESIUM PROTOCOLS, AND HIS HOME MEDICATIONS WERE RESUMED. TODAY, WE WILL OBTAIN AN ECHO, AFB CULTURES, COVID-19 ANTIBODIES. WE WILL START PEPCID 20MG IV BID AND INCREASE SOLU-MEDROL TO 80MG IV Q8H. OTHERWISE, WE PLAN TO FOLLOW UP WITH AM LABS AND CHEST XRAY AND CONTINUE TO MONITOR. - Past Medical Family Social History Past Med/Fam/Surg Hx: No changes since H&P Allergies: Allergies No Known Drug Allergies Allergy (Verified 01/19/18 23:53) - Review of Systems ROS: No change since H&P - Vital Signs and I&O's Vital Signs: Temperature 98.4 F Pulse Rate [Left Brachial] 110 Pulse Rate 117 Respiratory Rate 31 Blood Pressure [Left Arm] 157/76 Blood Pressure [Right Arm] 135/90 Blood Pressure [Standing] 128/84 Blood Pressure [Sitting] 133/87 Blood Pressure [Lying] 112/84 Blood Pressure 152/67 O2 Sat by Pulse Oximetry 91 Intake and Output: Intake & Output 07/14/20 07/15/20 07/16/20 07/17/20 11:59 11:59 11:59 11:59 Intake Total 2590 / 2590 1387 / 1387 191 / 1917 Output Total 500 / 500 1050 / 1050 Balance 2590 / 2590 887 / 887 867 / 867 - Physical Exam Oriented: Normal Eyes: Normal Ear: Normal Nose: Normal Throat: Normal Respiratory: Generalized, Diminished, Wheezes Cardiovascular: Normal : Normal Auscultation: Bowel Sounds: Normal Palpation: Normal Tenderness: Normal Skin: Normal Musculoskeletal: Normal Psychiatric: Normal Mood Description: Calm Affect: Normal Speech Pattern: Clear, Appropriate - Laboratory and Diagnostics Result Diagrams: 07/16/20 04:25 07/16/20 04:25 Labs: 07/12/20 12:03 Blood Blood Culture - Preliminary 07/12/20 11:57 Blood Blood Culture - Preliminary Laboratory WBC 29.6 X10^3/uL (3.6-10.0) H 07/16/20 04:25 RBC 5.01 X10^6/uL (4.7-6.0) 07/16/20 04:25 Hgb 15.0 g/dL (13.5-18.0) 07/16/20 04:25 Hct 45.0 % (42.0-54.0) 07/16/20 04:25 MCV 89.9 fL (80.0-100.0) 07/16/20 04:25 MCH 29.9 pg (27.0-34.0) 07/16/20 04:25 MCHC 33.2 g/dL (33.0-35.0) 07/16/20 04:25 RDW 14.0 % (11.6-16.5) 07/16/20 04:25 Plt Count 421 X10^3/uL (150.0-450.0) 07/16/20 04:25 Plt Count Comment Adequate (ADEQUATE) 07/16/20 04:25 MPV 8.9 fL (7.4-11.0) 07/16/20 04:25 Neut % (Auto) 89.1 % (42.0-75.0) H 07/16/20 04:25 Lymph % (Auto) 2.0 % (21.0-51.0) L 07/16/20 04:25 Darke % (Auto) 8.5 % (0.0-13.0) 07/16/20 04:25 Eos % (Auto) 0.1 % (0.9-2.9) L 07/16/20 04:25 Baso % (Auto) 0.3 % (0.2-1.0) 07/16/20 04:25 Neut # (Auto) 26.4 x10^3/uL (2.2-4.8) H 07/16/20 04:25 Lymph # (Auto) 0.6 X10^3/uL (1.3-2.9) L 07/16/20 04:25 Darke # (Auto) 2.5 x10^3/uL (0.3-0.8) H 07/16/20 04:25 Eos # (Auto) 0.0 x10^3/uL (0.0-0.2) 07/16/20 04:25 Baso # (Auto) 0.1 X10^3/uL (0.0-0.1) 07/16/20 04:25 Absolute Nucleated RBC 0.0 /100WBC 07/16/20 04:25 Total Counted 100 07/16/20 04:25 Neutrophils % (Manual) 88 % (39-76) H 07/16/20 04:25 Band Neutrophils % 2 % (0-10) 07/15/20 05:30 Lymphocytes % (Manual) 3 % (13-43) L 07/16/20 04:25 Monocytes % (Manual) 9 % (4-9) 07/16/20 04:25 Plt Morphology Comment Normal (NORMAL) 07/16/20 04:25 RBC Morphology Normal (NORMAL) 07/16/20 04:25 ESR 50 MM/HOUR (0-15) H 07/13/20 11:04 Sample Site Rrad 07/16/20 05:40 ABG pH 7.500 (7.35-7.45) H 07/16/20 05:40 ABG pCO2 47.0 mmHg (35.0-45.0) H 07/16/20 05:40 ABG pO2 58.0 mmHg (80.0-100.0) L 07/16/20 05:40 ABG HCO3 36.7 mmol/L (22-26) H* 07/16/20 05:40 ABG O2 Saturation 92.0 % (90-100) 07/16/20 05:40 ABG Base Excess 11.9 mmol/L (-2.0-2.0) H 07/16/20 05:40 Castro Test Pos 07/16/20 05:40 A-a Gradient 553.0 mmHg 07/16/20 05:40 FiO2 94.0 07/16/20 05:40 Blood Gas Comments Leland abg well-mtf 07/16/20 05:40 Sodium 139 mmol/L (136-145) 07/16/20 04:25 Corrected Sodium 140 mmol/L (136-145) 07/16/20 04:25 Potassium 3.5 mmol/L (3.5-5.1) 07/16/20 04:25 Chloride 100 mmol/L (98-107) 07/16/20 04:25 Carbon Dioxide 33.8 mmol/L (21-32) H 07/16/20 04:25 BUN 21 mg/dL (7-18) H 07/16/20 04:25 Creatinine 1.25 mg/dL (0.70-1.30) 07/16/20 04:25 Est GFR (MDRD) Af Amer > 60 (>60) 07/16/20 04:25 Est GFR (MDRD) Non-Af > 60 (>60) 07/16/20 04:25 Glucose 155 mg/dL (65-99) H 07/16/20 04:25 Calcium 8.8 mg/dL (8.5-10.1) 07/16/20 04:25 Corrected Calcium 10.0 mg/dL (8.5-10.1) 07/16/20 04:25 Ionized Calcium Brandee 1.29 mmol/L (1.11-1.30) 07/13/20 11:04 Ionized Calcium pH 7.4 1.30 mmol/L (1.11-1.30) 07/13/20 11:04 Magnesium 2.0 mg/dL (1.7-2.9) 07/14/20 05:10 Ferritin 279 ng/mL (26-388) 07/16/20 04:25 Total Bilirubin 0.60 mg/dL (0.2-1.0) 07/16/20 04:25 AST 44 Units/L (15-37) H 07/16/20 04:25 ALT 85 Units/L (12-78) H 07/16/20 04:25 Alkaline Phosphatase 74 Units/L (46-116) 07/16/20 04:25 C-Reactive Protein 51.50 mg/L (0-3.0) H 07/16/20 04:25 B-Natriuretic Peptide 18.0 pg/mL (0-79) 07/16/20 04:25 Total Protein 7.5 g/dL (6.4-8.2) 07/16/20 04:25 Albumin 2.5 g/dL (3.4-5.0) L 07/16/20 04:25 Globulin 5.0 g/dL (2.5-4.5) H 07/16/20 04:25 Albumin/Globulin Ratio 0.5 Ratio (1.1-2.1) L 07/16/20 04:25 Angiotensin Convert Enz 13 U/L (9-67) 07/13/20 11:04 Specimen Type Catherized urine 07/16/20 02:00 Urine Color Yellow (YELLOW) 07/16/20 02:00 Urine Appearance Clear (CLEAR) 07/16/20 02:00 Urine pH 5.0 (5.0 - 8.0) 07/16/20 02:00 Ur Specific [place] 1.020 (1.000-1.030) 07/16/20 02:00 Urine Protein 1+ (NEGATIVE) 07/16/20 02:00 Urine Glucose (UA) Negative (NEGATIVE) 07/16/20 02:00 Urine Ketones Negative (NEGATIVE) 07/16/20 02:00 Urine Occult Blood 1+ (NEGATIVE) 07/16/20 02:00 Urine Nitrite Negative (NEGATIVE) 07/16/20 02:00 Urine Bilirubin Negative (NEGATIVE) 07/16/20 02:00 Urine Urobilinogen Normal (NORMAL) 07/16/20 02:00 Ur Leukocyte Esterase Negative (NEGATIVE) 07/16/20 02:00 Urine RBC 0-2 /HPF (0-3) 07/16/20 02:00 Urine WBC None seen /HPF (0-5) 07/16/20 02:00 Ur Squamous Epith Cells Negative /HPF (NEGATIVE) 07/16/20 02:00 Urine Bacteria Trace /HPF (NEGATIVE) 07/16/20 02:00 Hyaline Casts Few /LPF (NEGATIVE) 07/16/20 02:00 Ur Culture Indicated? No/not indicated 07/16/20 02:00 BUD Screen None detected (None Detected) 07/13/20 11:04 BUD Titer TNP 07/13/20 11:04 BUD Pattern TNP 07/13/20 11:04 ANCA Titer TNP 07/13/20 11:04 Anti-Myeloperoxidase 0 AU/mL (0-19) 07/13/20 11:04 ANCA IgG <1:20 (<1:20) 07/13/20 11:04 Serine Protease 3 Ab 5 AU/mL (0-19) 07/13/20 11:04 Influenza Type A Ag Negative-presumptive (NEGATIVE) 07/10/20 19:37 Influenza Type B Ag Negative-presumptive (NEGATIVE) 07/10/20 19:37 SARS-CoV-2 (PCR) Negative (NEGATIVE) 07/15/20 09:20 - Plan (1) Pneumonia Status: Acute Plan: VANCOMYCIN IV, ZOSYN IV, SOLU-MEDROL 40MG IV Q8H, DUONEBS Q4H, TUSSIONEX 5ML PO Q8H, LOVENOX 40MG SC DAILY, ROBITUSSIN 10ML PO QID, MAGIC MOUTHWASH QID, DECADRON IN NEB [place] QID, MORPHINE IN JET NEBS Q6H, TEMOVATE CREAM BID, THE POTASSIUM AND MAGNESIUM PROTOCOLS, AND HIS HOME MEDICATIONS WERE RESUMED, SUPPLEMENTAL OXYGEN (2) COPD (chronic obstructive pulmonary disease) Status: Chronic Qualifiers: Qualified Code(s): J44.9 - Chronic obstructive pulmonary disease, unspecified
[2020-07-16 21:14] LABS: CREATININE 1.36 mg/dL (0.70-1.30); VANCOMYCIN,TROUGH 10.5 ug/mL (15-20)
[2020-07-16] MEDS ORDERED: VANCOMYCIN HCL ONE (21:53)
[2020-07-16] MEDS: VANCOMYCIN HCL 500 MG, VANCOMYCIN HCL 1 G in NS 250 ML IV 250 ML IV SCH (22:32)
[2020-07-16] MEDS ORDERED: VISTARIL PO ONE (23:09)
[2020-07-16] MEDS: VISTARIL PO PRN (23:23)
[2020-07-17] MEDS: DUONEB 0.5 MG/3 MG (3 mL) NEB SCH ×6 (00:54→21:23)
[2020-07-17] MEDS: MORPHINE SULFATE JET NEB NEB SCH ×4 (00:54→21:26)
[2020-07-17] MEDS: TUSSIONEX PENNKINETIC SUSP PO SCH ×3 (03:45→19:40)
[2020-07-17 05:24] LABS: BASOPHILS % (AUTO) 0.1 % (0.2-1.0); HEMATOCRIT 44.6 % (42.0-54.0); HEMOGLOBIN 14.7 g/dL (13.5-18.0); LYMPHOCYTES # (AUTO) 0.5 X10^3/uL (1.3-2.9); LYMPHOCYTES % (AUTO) 1.6 % (21.0-51.0); MEAN CORPUSCULAR HEMOGLOBIN 29.4 pg (27.0-34.0); MEAN CORPUSCULAR VOLUME 89.1 fL (80.0-100.0); MEAN PLATELET VOLUME 8.6 fL (7.4-11.0); MONOCYTES # (AUTO) 2.2 x10^3/uL (0.3-0.8); MONOCYTES % (AUTO) 6.8 % (0.0-13.0); NEUTROPHILS # (AUTO) 29.6 x10^3/uL (2.2-4.8); NEUTROPHILS % (AUTO) 91.5 % (42.0-75.0); PLATELET COUNT 373 X10^3/uL (150.0-450.0); RED BLOOD COUNT 5.01 X10^6/uL (4.7-6.0); RED CELL DISTRIBUTION WIDTH 14.5 % (11.6-16.5)
[2020-07-17 05:28] LABS: ALANINE AMINOTRANSFERASE 82 Units/L (12-78); ALBUMIN 2.4 g/dL (3.4-5.0); ALKALINE PHOSPHATASE 75 Units/L (46-116); ASPARTATE AMINO TRANSFERASE 39 Units/L (15-37); BLOOD UREA NITROGEN 22 mg/dL (7-18); CALCIUM 8.8 mg/dL (8.5-10.1); CHLORIDE 99 mmol/L (98-107); COR CA(FOR HYPOALB) 10.1 mg/dL (8.5-10.1); COR NA(FOR HYPERGLY) 140 mmol/L (136-145); CREATININE 1.27 mg/dL (0.70-1.30); SODIUM 139 mmol/L (136-145); TOTAL PROTEIN 7.4 g/dL (6.4-8.2); eGFR NON BLACK RACES > 60 (>60)
[2020-07-17 05:33] LABS: WHITE BLOOD COUNT 32.4 X10^3/uL (3.6-10.0)
[2020-07-17 05:47] LABS: ABG BASE EXCESS 15.4 mmol/L (-2.0-2.0)
[2020-07-17 05:48] LABS: ABG ALLEN TEST POS; ABG HCO3 40.1 mmol/L (22-26)
[2020-07-17 06:02] LABS: PLATELET MORPHOLOGY COMMENT NORMAL (NORMAL)
[2020-07-17] MEDS: SOLU-Medrol 40 MG VIAL IVP SCH (06:23)
[2020-07-17] MEDS: ULTRAM PO SCH ×3 (06:24→21:17)
[2020-07-17] MEDS: TESSALON PERLES PO SCH ×3 (06:24→21:17)
--- NOTE | 2020-07-17 06:25 | RAD ---
HISTORYShortness of breathSTUDYChest AP [id number] heart is upper limits normal in size. Diffuse bilateral interstitial and some patchy alveolar infiltrates are identified not significantly changed in degree or distribution from the prior examination. No pleural effusions are identified. Mild hypo inflation is present. Bony thorax is unremarkable.IMPRESSIONNo change hypo inflationNo change bilateral interstitial and some patchy ground-glass and alveolar infiltrates when compared with the prior examinationElectronically signed by: ARTEM BRADLEY (Jul 17, 2020 06:25:35)
[2020-07-17] MEDS: ZOSYN VIAL 3.375 GRAMS 3.375 G in NS 100 ML IV + SPIKE MINIBAG* 100 ML IV SCH ×3 (06:26→22:00)
[2020-07-17] MEDS: HYDROCHLOROTHIAZIDE 12.5 MG CAP PO SCH (08:32)
[2020-07-17] MEDS: DIOVAN TAB 80 MG PO SCH (08:32)
[2020-07-17] MEDS: AQUAPHOR TOP SCH ×2 (08:32→21:18)
[2020-07-17] MEDS: COLACE CAP 100 MG PO SCH ×2 (08:32→21:13)
[2020-07-17] MEDS: MAGIC MOUTHWASH MT SCH ×4 (08:33→21:19)
[2020-07-17] MEDS: PROTONIX TAB 40 MG PO SCH (08:33)
[2020-07-17] MEDS: LOVENOX INJ 40 MG SYR SC SCH (08:33)
[2020-07-17] MEDS: ROBITUSSIN DM PO SCH ×4 (08:34→21:14)
[2020-07-17] MEDS: VANCOMYCIN HCL 500 MG, VANCOMYCIN HCL 1 G in NS 250 ML IV 250 ML IV SCH ×2 (08:34→21:15)
[2020-07-17] MEDS: TEMOVATE CREAM EXT SCH ×2 (08:34→21:18)
[2020-07-17] MEDS: PULMICORT NEB TX 0.5 MG NEB SCH ×2 (09:40→21:23)
[2020-07-17] MEDS: THEO-DUR TAB 200 MG 12-HR PO SCH ×2 (11:48→21:14)
[2020-07-17] MEDS ORDERED: DIFLUCAN PO SCH (12:00)
--- NOTE | 2020-07-17 12:12 | PCM.PROG ---
Progress Note - Progress Note for Day of Date of Exam: 07/17/20 - Subjective Subjective: WAS ADMITTED FOR TREATMENT OF PNEUMONIA. HE WAS TRANSFERRED TO THE [facility]ENSIVE [facility]ARE UNIT OVER THE WEEKEND DUE TO INCREASED RESPIRATORY DISTRESS AND DECREASED OXYGEN SATURATIONS. TODAY, HE IS ALERT AND OREINTED, LYING IN BED ON MORNING ROUNDS. HE CONTINUES WITH COUGH AND SHORTNESS OF BREATH TODAY. SHORTNESS OF BREATH IS WORSE THIS MORNING. HE IS ONLY ABLE TO SAY A FEW WORDS AT THE TIME WITHOUT HAVING TO STOP TO CATCH HIS BREATH. STAFF REPORTS THAT HIS OXYGEN SATURATIONS FALL TO THE 70s WHEN HE IS NOT ON OXYGEN. IT TAKES SEVERAL MINUTES FOR HIM TO RECOVER AND FOR HIS SATURATIONS TO INCREASE TO THE 90s AGAIN. HE IS CURRENTLY UTILIZING HEATED HIGH FLOW OXYGEN. HE USED THE BIPAP THROUGHOUT THE NIGHT. ON EXAMINATION, HE IS TACHYCARDIC WITH HR 100-110. HEART IS REGULAR IN RHYTHM. BILATERAL LUNGS ARE NOTED WITH SCATTERED WHEEZING THROUGHOUT. ABDOMEN IS ROUND, SOFT, AND NON-TENDER WITH NORMAL BOWEL SOUNDS NOTED IN ALL QUADRANTS. HIS VITALS THIS MORNING ARE: 98.1-103-22-91%HHF-121/78. LABS WERE OBTAINED. ABNORMAL LAB VALUES INCLUDE THE FOLLOWING: WBC INCREASED TO 32.4, CARBON DIOXIDE 37.0, BUN 22, GLUCOSE 154, AST 39, ALT 82, CRP 61.30, ALBUMIN 2.4, GLOBULIN 5.0. PPD NEGATIVE. BLOOD AND SPUTUM CULTURES ARE PENDING. ABG REVEALED: PH 7.530, PC02 48, P02 64, HC03 40.0, 02 SAT 94, FI02 94. A CHEST XRAY WAS OBTAINED AND REVEALED: No change hypo inflation. No change bilateral in terstitial and some patchy ground-glass and alveolar infiltrates when compared with the prior examination. HE IS CURRENTLY RECEIVING: VANCOMYCIN IV, ZOSYN IV, SOLU-MEDROL 80MG IV Q8H, DUONEBS Q4H, TUSSIONEX 5ML PO Q8H, LOVENOX 40MG SC DAILY, ROBITUSSIN 10ML PO QID, MAGIC MOUTHWASH QID, DECADRON IN NEB [place] QID, PEPCID 20MG IV BID, MORPHINE IN JET NEBS Q6H, TEMOVATE CREAM BID, THE POTASSIUM AND MAGNESIUM PROTOCOLS, AND HIS HOME MEDICATIONS WERE RESUMED. TODAY, WE WILL ADD SHAYE-DUR 200MG PO BID. WE WILL DISCONTINUE THE STEROIDS. OTHERWISE, WE PLAN TO FOLLOW UP WITH AM LABS AND CHEST XRAY AND CONTINUE TO MONITOR. - Past Medical Family Social History Past Med/Fam/Surg Hx: No changes since H&P Allergies: Allergies No Known Drug Allergies Allergy (Verified 01/19/18 23:53) - Review of Systems ROS: No change since H&P - Vital Signs and I&O's Vital Signs: Temperature 98.1 F Pulse Rate [Left Brachial] 96 Pulse Rate 102 Respiratory Rate 28 Blood Pressure [Left Arm] 132/77 Blood Pressure [Right Arm] 115/72 Blood Pressure [Standing] 128/84 Blood Pressure [Sitting] 133/87 Blood Pressure [Lying] 112/84 Blood Pressure 152/67 O2 Sat by Pulse Oximetry 90 Intake and Output: Intake & Output 07/15/20 07/16/20 07/17/20 07/18/20 11:59 11:59 11:59 11:59 Intake Total 1387 / 1387 1917 / 1917 1845 / 1845 Output Total 500 / 500 1050 / 1050 1450 / 1450 Balance 887 / 887 867 / 867 395 / 395 - Physical Exam Oriented: Normal Eyes: Normal Ear: Normal Nose: Normal Throat: Normal Respiratory: Generalized, Diminished, Wheezes Cardiovascular: Normal : Normal Auscultation: Bowel Sounds: Normal Tenderness: Normal Skin: Normal Musculoskeletal: Normal Psychiatric: Normal Mood Description: Calm Affect: Normal Speech Pattern: Clear, Appropriate - Laboratory and Diagnostics Result Diagrams: 07/17/20 04:45 07/17/20 04:45 Labs: 07/15/20 01:56 Sputum - Expectorated Sputum Sputum Culture - Preliminary 07/15/20 01:56 Sputum - Expectorated Sputum - Final 07/12/20 12:03 Blood Blood Culture - Preliminary 07/12/20 11:57 Blood Blood Culture - Preliminary Laboratory WBC 32.4 X10^3/uL (3.6-10.0) H* 07/17/20 04:45 RBC 5.01 X10^6/uL (4.7-6.0) 07/17/20 04:45 Hgb 14.7 g/dL (13.5-18.0) 07/17/20 04:45 Hct 44.6 % (42.0-54.0) 07/17/20 04:45 MCV 89.1 fL (80.0-100.0) 07/17/20 04:45 MCH 29.4 pg (27.0-34.0) 07/17/20 04:45 MCHC 33.0 g/dL (33.0-35.0) 07/17/20 04:45 RDW 14.5 % (11.6-16.5) 07/17/20 04:45 Plt Count 373 X10^3/uL (150.0-450.0) 07/17/20 04:45 Plt Count Comment Increased (ADEQUATE) 07/17/20 04:45 MPV 8.6 fL (7.4-11.0) 07/17/20 04:45 Neut % (Auto) 91.5 % (42.0-75.0) H 07/17/20 04:45 Lymph % (Auto) 1.6 % (21.0-51.0) L 07/17/20 04:45 Stanley % (Auto) 6.8 % (0.0-13.0) 07/17/20 04:45 Eos % (Auto) 0.0 % (0.9-2.9) L 07/17/20 04:45 Baso % (Auto) 0.1 % (0.2-1.0) L 07/17/20 04:45 Neut # (Auto) 29.6 x10^3/uL (2.2-4.8) H 07/17/20 04:45 Lymph # (Auto) 0.5 X10^3/uL (1.3-2.9) L 07/17/20 04:45 Stanley # (Auto) 2.2 x10^3/uL (0.3-0.8) H 07/17/20 04:45 Eos # (Auto) 0.0 x10^3/uL (0.0-0.2) 07/17/20 04:45 Baso # (Auto) 0.0 X10^3/uL (0.0-0.1) 07/17/20 04:45 Absolute Nucleated RBC 0.0 /100WBC 07/17/20 04:45 Total Counted 100 07/17/20 04:45 Neutrophils % (Manual) 98 % (39-76) H 07/17/20 04:45 Band Neutrophils % 2 % (0-10) 07/15/20 05:30 Lymphocytes % (Manual) Not Reportable 07/17/20 04:45 Monocytes % (Manual) 2 % (4-9) L 07/17/20 04:45 Plt Morphology Comment Normal (NORMAL) 07/17/20 04:45 RBC Morphology Normal (NORMAL) 07/17/20 04:45 ESR 50 MM/HOUR (0-15) H 07/13/20 11:04 Sample Site Rrad 07/17/20 05:43 ABG pH 7.530 (7.35-7.45) H 07/17/20 05:43 ABG pCO2 48.0 mmHg (35.0-45.0) H 07/17/20 05:43 ABG pO2 64.0 mmHg (80.0-100.0) L 07/17/20 05:43 ABG HCO3 40.1 mmol/L (22-26) H* 07/17/20 05:43 ABG O2 Saturation 94.0 % (90-100) 07/17/20 05:43 ABG Base Excess 15.4 mmol/L (-2.0-2.0) H 07/17/20 05:43 Castro Test Pos 07/17/20 05:43 A-a Gradient 546.0 mmHg 07/17/20 05:43 FiO2 94.0 07/17/20 05:43 Blood Gas Comments Leland abg well-mtf 07/17/20 05:43 Sodium 139 mmol/L (136-145) 07/17/20 04:45 Corrected Sodium 140 mmol/L (136-145) 07/17/20 04:45 Potassium 3.6 mmol/L (3.5-5.1) 07/17/20 04:45 Chloride 99 mmol/L (98-107) 07/17/20 04:45 Carbon Dioxide 37.0 mmol/L (21-32) H 07/17/20 04:45 BUN 22 mg/dL (7-18) H 07/17/20 04:45 Creatinine 1.27 mg/dL (0.70-1.30) 07/17/20 04:45 Est GFR (MDRD) Af Amer > 60 (>60) 07/17/20 04:45 Est GFR (MDRD) Non-Af > 60 (>60) 07/17/20 04:45 Glucose 154 mg/dL (65-99) H 07/17/20 04:45 Calcium 8.8 mg/dL (8.5-10.1) 07/17/20 04:45 Corrected Calcium 10.1 mg/dL (8.5-10.1) 07/17/20 04:45 Ionized Calcium Brandee 1.29 mmol/L (1.11-1.30) 07/13/20 11:04 Ionized Calcium pH 7.4 1.30 mmol/L (1.11-1.30) 07/13/20 11:04 Magnesium 2.0 mg/dL (1.7-2.9) 07/14/20 05:10 Ferritin 279 ng/mL (26-388) 07/16/20 04:25 Total Bilirubin 0.70 mg/dL (0.2-1.0) 07/17/20 04:45 AST 39 Units/L (15-37) H 07/17/20 04:45 ALT 82 Units/L (12-78) H 07/17/20 04:45 Alkaline Phosphatase 75 Units/L (46-116) 07/17/20 04:45 C-Reactive Protein 61.30 mg/L (0-3.0) H 07/17/20 04:45 B-Natriuretic Peptide 11.5 pg/mL (0-79) 07/17/20 04:45 Total Protein 7.4 g/dL (6.4-8.2) 07/17/20 04:45 Albumin 2.4 g/dL (3.4-5.0) L 07/17/20 04:45 Globulin 5.0 g/dL (2.5-4.5) H 07/17/20 04:45 Albumin/Globulin Ratio 0.5 Ratio (1.1-2.1) L 07/17/20 04:45 Angiotensin Convert Enz 13 U/L (9-67) 07/13/20 11:04 Specimen Type Catherized urine 07/16/20 02:00 Urine Color Yellow (YELLOW) 07/16/20 02:00 Urine Appearance Clear (CLEAR) 07/16/20 02:00 Urine pH 5.0 (5.0 - 8.0) 07/16/20 02:00 Ur Specific [place] 1.020 (1.000-1.030) 07/16/20 02:00 Urine Protein 1+ (NEGATIVE) 07/16/20 02:00 Urine Glucose (UA) Negative (NEGATIVE) 07/16/20 02:00 Urine Ketones Negative (NEGATIVE) 07/16/20 02:00 Urine Occult Blood 1+ (NEGATIVE) 07/16/20 02:00 Urine Nitrite Negative (NEGATIVE) 07/16/20 02:00 Urine Bilirubin Negative (NEGATIVE) 07/16/20 02:00 Urine Urobilinogen Normal (NORMAL) 07/16/20 02:00 Ur Leukocyte Esterase Negative (NEGATIVE) 07/16/20 02:00 Urine RBC 0-2 /HPF (0-3) 07/16/20 02:00 Urine WBC None seen /HPF (0-5) 07/16/20 02:00 Ur Squamous Epith Cells Negative /HPF (NEGATIVE) 07/16/20 02:00 Urine Bacteria Trace /HPF (NEGATIVE) 07/16/20 02:00 Hyaline Casts Few /LPF (NEGATIVE) 07/16/20 02:00 Ur Culture Indicated? No/not indicated 07/16/20 02:00 Vancomycin Trough 10.5 ug/mL (15-20) L 07/16/20 20:36 BUD Screen None detected (None Detected) 07/13/20 11:04 BUD Titer TNP 07/13/20 11:04 BUD Pattern TNP 07/13/20 11:04 ANCA Titer TNP 07/13/20 11:04 Anti-Myeloperoxidase 0 AU/mL (0-19) 07/13/20 11:04 ANCA IgG <1:20 (<1:20) 07/13/20 11:04 Serine Protease 3 Ab 5 AU/mL (0-19) 07/13/20 11:04 Acid Fast Stain Cancelled 07/16/20 17:35 Influenza Type A Ag Negative-presumptive (NEGATIVE) 07/10/20 19:37 Influenza Type B Ag Negative-presumptive (NEGATIVE) 07/10/20 19:37 SARS-CoV-2 (PCR) Negative (NEGATIVE) 07/15/20 09:20 AFB Culture Cancelled 07/16/20 17:35 - Plan (1) Pneumonia Status: Acute Plan: VANCOMYCIN IV, ZOSYN IV, SHAYE-DUR 200MG PO BID, DUONEBS Q4H, TUSSIONEX 5ML PO Q8H, LOVENOX 40MG SC DAILY, ROBITUSSIN 10ML PO QID, MAGIC MOUTHWASH QID, DECADRON IN NEB [place] QID, MORPHINE IN JET NEBS Q6H, TEMOVATE CREAM BID, THE POTASSIUM AND MAGNESIUM PROTOCOLS, AND HIS HOME MEDICATIONS WERE RESUMED, SUPPLEMENTAL OXYGEN (2) COPD (chronic obstructive pulmonary disease) Status: Chronic Qualifiers: COPD type: unspecified COPD Qualified Code(s): J44.9 - Chronic obstructive pulmonary disease, unspecified
[2020-07-17] MEDS ORDERED: NS 250 ML IV 250 ML IV ONE (20:00)
[2020-07-17 23:31] LABS: CREATINE KINASE 309 Units/L (39-308); TROPONIN I < 0.02 ng/mL (0-1.5)
[2020-07-17] MEDS: VISTARIL PO PRN (23:35)
[2020-07-17] MEDS ORDERED: LOPRESSOR INJ 5 MG AMP IVP ONE (23:56)
[2020-07-17] MEDS ORDERED: LOPRESSOR INJ 5 MG AMP ONE (23:57)
[2020-07-18] MEDS ORDERED: XOPENEX 1.25 MG/3 ML NEBULE NEB PRN (00:43)
[2020-07-18] MEDS: MORPHINE SULFATE JET NEB NEB SCH ×3 (01:03→15:09)
[2020-07-18] MEDS: TUSSIONEX PENNKINETIC SUSP PO SCH ×2 (03:05→11:03)
[2020-07-18] MEDS ORDERED: LOPRESSOR INJ 5 MG AMP IVP ONE (04:00)
[2020-07-18] MEDS ORDERED: LOPRESSOR INJ 5 MG AMP ONE (04:04)
[2020-07-18] MEDS ORDERED: CARDIZEM INJ 50 MG VIAL ONE (05:04)
[2020-07-18 05:14] LABS: EOSINOPHILS % (AUTO) 0.1 % (0.9-2.9); LYMPHOCYTES # (AUTO) 0.8 X10^3/uL (1.3-2.9); MONOCYTES # (AUTO) 2.5 x10^3/uL (0.3-0.8); RED BLOOD COUNT 4.95 X10^6/uL (4.7-6.0)
[2020-07-18 05:20] LABS: BASOPHILS # (AUTO) 0.1 X10^3/uL (0.0-0.1); BASOPHILS % (AUTO) 0.2 % (0.2-1.0); HEMOGLOBIN 14.4 g/dL (13.5-18.0); LYMPHOCYTES % (AUTO) 2.3 % (21.0-51.0); MEAN CORPUSCULAR HEMOGLOBIN 29.1 pg (27.0-34.0); MEAN CORPUSCULAR HGB CONC 32.7 g/dL (33.0-35.0); MEAN CORPUSCULAR VOLUME 88.9 fL (80.0-100.0); MEAN PLATELET VOLUME 8.5 fL (7.4-11.0); MONOCYTES % (AUTO) 6.8 % (0.0-13.0); NEUTROPHILS # (AUTO) 33.3 x10^3/uL (2.2-4.8); NEUTROPHILS % (AUTO) 90.6 % (42.0-75.0); PLATELET COUNT 279 X10^3/uL (150.0-450.0); RED CELL DISTRIBUTION WIDTH 14.2 % (11.6-16.5)
[2020-07-18 05:28] LABS: ALANINE AMINOTRANSFERASE 85 Units/L (12-78); ALBUMIN 2.2 g/dL (3.4-5.0); ALKALINE PHOSPHATASE 76 Units/L (46-116); ASPARTATE AMINO TRANSFERASE 56 Units/L (15-37); BLOOD UREA NITROGEN 25 mg/dL (7-18); CALCIUM 8.4 mg/dL (8.5-10.1); CARBON DIOXIDE 34.4 mmol/L (21-32); CHLORIDE 101 mmol/L (98-107); COR CA(FOR HYPOALB) 9.8 mg/dL (8.5-10.1); COR NA(FOR HYPERGLY) 141 mmol/L (136-145); CREATININE 1.33 mg/dL (0.70-1.30); SODIUM 140 mmol/L (136-145); TOTAL PROTEIN 6.7 g/dL (6.4-8.2); WHITE BLOOD COUNT 36.7 X10^3/uL (3.6-10.0); eGFR NON BLACK RACES 58 (>60)
[2020-07-18 05:32] LABS: CKMB % 1.1 % (<4); CREATINE KINASE MB 3.1 ng/mL (0-4.0); TROPONIN I 0.07 ng/mL (0-1.5)
[2020-07-18] MEDS: TESSALON PERLES PO SCH ×2 (05:38→12:55)
[2020-07-18] MEDS: ULTRAM PO SCH ×2 (05:39→12:55)
[2020-07-18] MEDS: ZOSYN VIAL 3.375 GRAMS 3.375 G in NS 100 ML IV + SPIKE MINIBAG* 100 ML IV SCH ×2 (05:39→12:55)
[2020-07-18] MEDS ORDERED: CARDIZEM INJ 50 MG VIAL IVP ONE (05:53)
[2020-07-18 05:58] LABS: ABG BASE EXCESS 15.1 mmol/L (-2.0-2.0)
--- NOTE | 2020-07-18 05:58 | RAD ---
HISTORYShortness of breathSTUDYChest AP [id number]/2020FINDINGSThe heart remains upper limits normal in size. The lungs are well inflated. Diffuse bilateral interstitial patchy and some confluent alveolar infiltrates are not significantly changed in degree or distribution from the prior examination. No pleural effusions are identified. Bony thorax is unremarkable.IMPRESSIONNo change diffuse bilateral interstitial, patchy and some confluent ground-glass and alveolar infiltrates when compared with the prior examinationElectronically signed by: ARTEM BRADLEY (Jul 18, 2020 05:58:28)
[2020-07-18 06:06] LABS: PLATELET MORPHOLOGY COMMENT NORMAL (NORMAL)
[2020-07-18 06:09] LABS: ABG ALLEN TEST POS
[2020-07-18] MEDS ORDERED: PHARMACY COMMENT IV NR (08:30)
[2020-07-18 08:54] LABS: CREATININE 1.27 mg/dL (0.70-1.30); VANCOMYCIN,TROUGH 18.3 ug/mL (15-20)
[2020-07-18] MEDS ORDERED: XOPENEX 1.25 MG/3 ML NEBULE NEB SCH (09:00)
[2020-07-18] MEDS ORDERED: DIFLUCAN PO SCH (09:00)
[2020-07-18 09:15] LABS: CREATINE KINASE MB 2.7 ng/mL (0-4.0); TROPONIN I 0.11 ng/mL (0-1.5)
[2020-07-18] MEDS: PULMICORT NEB TX 0.5 MG NEB SCH (09:15)
[2020-07-18] MEDS: DIOVAN TAB 80 MG PO SCH (10:32)
[2020-07-18] MEDS: VANCOMYCIN HCL 500 MG, VANCOMYCIN HCL 1 G in NS 250 ML IV 250 ML IV SCH (10:32)
[2020-07-18] MEDS: THEO-DUR TAB 200 MG 12-HR PO SCH (10:33)
[2020-07-18] MEDS: HYDROCHLOROTHIAZIDE 12.5 MG CAP PO SCH (10:33)
[2020-07-18] MEDS: LOVENOX INJ 40 MG SYR SC SCH (10:34)
[2020-07-18] MEDS: PROTONIX TAB 40 MG PO SCH (10:34)
[2020-07-18] MEDS: MAGIC MOUTHWASH MT SCH ×2 (10:34→12:24)
[2020-07-18] MEDS: ROBITUSSIN DM PO SCH ×2 (10:34→12:24)
[2020-07-18] MEDS: TEMOVATE CREAM EXT SCH (10:35)
[2020-07-18] MEDS: AQUAPHOR TOP SCH (10:36)
[2020-07-18] MEDS: XOPENEX 1.25 MG/3 ML NEBULE NEB SCH ×2 (10:47→12:05)
[2020-07-18 11:35] LABS: ABG BASE EXCESS 14.4 mmol/L (-2.0-2.0); ABG HCO3 39.2 mmol/L (22-26)
[2020-07-18 11:36] LABS: FRACTIONATED INSPIRED OXYGEN 100
[2020-07-18] MEDS ORDERED: DIPRIVAN VIAL 20 ML ONE (12:32)
[2020-07-18] MEDS ORDERED: QUELICIN (OR ANECTINE) ONE (12:34)
[2020-07-18] MEDS ORDERED: DIPRIVAN PREMIX 1 GRAM IV 1,000 MG/100 ML VIAL IV PRN (13:13)
--- NOTE | 2020-07-18 13:23 | DR.UPDATE ---
H&P Update History and Physical Update: History and Physical reviewed and patient examined. Changes noted: NO Yes with the following:will intubate for respiratory compromise H&P Reviewed: Yes Patient was examined?: Yes Procedures (ALL) - Intubation Time out performed: Yes Sedative: other (propofol 160mg) paralytic: succinylchline (100mg. then vecuronium after return of spont vent) Laryngoscope: fiber optic video scope (glidescope 4) ET tube size: 8 Tube secured depth: 22 Tube secured location: teeth Tube placement confirmation: visualized tube passing through cords, equal breath sounds bilaterally, no breath sounds over epigastrium, comfirmation by capnometer Patient tolerated procedure: Yes Intubation complications: none
--- NOTE | 2020-07-18 13:39 | RAD ---
HISTORYPNEUMONIASTUDYCHEST, 1 VIEWCOMPARISONPortable chest June 18, 2020FINDINGSThe trachea is midline. Endotracheal tube is in place with the tip 4 cm above the francisca. The cardiac silhouette is unremarkable . The left perihilar infiltrate is not significantly changed compared to earlier study at 3:44 a.m. but there is worsening distribution and density of the interstitial infiltrate in the right lung base. There are no effusions.. The bony thorax is unremarkable.IMPRESSIONWorsening interstitial infiltrate in the right lung base with placement of ET tube compared to earlier film at 3:44 a.m...Electronically signed by: TRES MCGILL (Jul 18, 2020 13:39:40)
[2020-07-18 13:55] VITALS: BP 118/80
== END 2020-07-18 14:40 | disposition short-term general hospital (02) | DRG 208 ==
LOC: ER 14:22 → OBS 14:22 → OBSVTOIN 20:50 → OBS 21:20 → MED/SURG 07-11 16:51 → ICU 07-15 11:45
PROVIDERS: ADMIT Internal Medicine; ATTEND Internal Medicine
DX: R94.31 Abnormal electrocardiogram [ECG] [EKG]; R06.03 Acute respiratory distress; Z20.828 Contact with and (suspected) exposure to other viral communicable diseases; J44.9 Chronic obstructive pulmonary disease, unspecified; R13.11 Dysphagia, oral phase; K21.9 Gastro-esophageal reflux disease without esophagitis; R70.0 Elevated erythrocyte sedimentation rate; I10 Essential (primary) hypertension; J18.8 Other pneumonia, unspecified organism; R50.9 Fever, unspecified